=== PATIENT | female | born 1990 | race African-American/Black ===

== ENCOUNTER 2017-02-28 08:10 | Emergency (ER) | payer MEDICAID ==
[~2017-02-28] VITALS: Ht 162.6 cm; Wt 66.5 kg
[~2017-02-28 08:10] MED LIST: AMOX500T PO; BACT800T5 PO; HYDR-3533 PO; PENI250S PO
[2017-02-28 08:15] VITALS: BP 119/66; PULSE 71; RESP 18; TEMP 98.5; O2SAT 99
[2017-02-28] MEDS ORDERED: TYLE325T PO (08:54)
--- NOTE | 2017-02-28 08:56 | PD ---
HPI Chief Complaint: Headache Time Seen by Provider: 08:46 Travel History International Travel<30 days: No Contact w/Intl Traveler<30days: No Traveled to known affect area: No History of Present Illness HPI has a history of migraines but ran out of her medications...gastelum, generalized, , no visual changes, no vomiting...however does state that she has had more nausea (even without a headache) during the last 3 days. all:sudafed causes edema of tongue pmhx neg pshx: c sectionx3 lmp: december of this year PFSH Past Medical History Diminished Hearing: No Reproductive: Yes (PLACENTA PREVIA: 3RD CHILD, LABOR ALL 3 PREGNANCIES) Immunizations Current: Yes ?: LMP: 01/18/17 : 3 Para: 3 Past Surgical History Section: Yes (X1: 2008) Social History Alcohol Use: No Tobacco Use: No Substance Use: No Allergies-Medications (Allergen,Severity, Reaction): Coded Allergies: pseudoephedrine (Unverified Allergy, Severe, TONGUE SWELLS, 02/28/17) Uncoded Allergies: AQUA FRESH TOOTHPASTE (Allergy, Intermediate, TONGUE SWELLS, 12/21/15) . Reported Meds & Prescriptions Reported Meds & Active Scripts Active Reported Tylenol (Acetaminophen) 325 Mg Tab 650 Mg PO Q4H PRN Review of Systems Except as stated in HPI: all other systems reviewed are Neg HENT: Positive: Headaches Physical Exam Narrative GENERAL: SKIN: Warm and dry. HEAD: Atraumatic. Normocephalic. EYES: Pupils equal and round. No scleral icterus. No injection or drainage. ENT: No nasal bleeding or discharge. Mucous membranes pink and moist. NECK: Trachea midline. No JVD. CARDIOVASCULAR: Regular rate and rhythm. RESPIRATORY: No accessory muscle use. Clear to auscultation. Breath sounds equal bilaterally. GASTROINTESTINAL: Abdomen soft, non-tender, nondistended. MUSCULOSKELETAL: Extremities without clubbing, cyanosis, or edema. No obvious deformities. NEUROLOGICAL: Awake and alert. No obvious cranial nerve deficits. Motor grossly within normal limits. Five out of 5 muscle strength in the arms and legs. Normal speech. PSYCHIATRIC: Appropriate mood and affect; insight and judgment normal. Data Data Last Documented VS Vital Signs Date Time Temp Pulse Resp B/P (MAP) Pulse Ox O2 Delivery O2 Flow Rate FiO2 02/28/17 08:15 98.5 71 18 119/66 (83) 99 Orders Orders Ed Urine Pregnancytest Poc (02/28/17 08:20) Complete Blood Count With Diff (02/28/17 08:47) Comprehensive Metabolic Panel (02/28/17 08:47) Urinalysis - C+S If Indicated (02/28/17 08:47) Beta Hcg (Quant/Titer) (02/28/17 08:47) Sodium Chlor 0.9% 1000 Ml Inj (Ns 1000 M (02/28/17 09:00) Ondansetron Inj (Zofran Inj) (02/28/17 09:00) Urine Culture (02/28/17 08:45) Labs Laboratory Tests Test 02/28/17 08:45 02/28/17 09:05 Urine Collection Type CLEAN CATCH Urine Color YELLOW Urine Turbidity SLIGHTY CLOUDY Urine pH 6.0 Urine Specific [place] 1.026 Urine Protein TRACE mg/dL Urine Glucose (UA) NEG mg/dL Urine Ketones 80 OR GREATER mg/dL Urine Occult Blood MOD Urine Nitrite NEG Urine Bilirubin NEG Urine Leukocyte Esterase SMALL Urine RBC 0-3 /hpf Urine WBC 9-14 /hpf Urine Squamous Epithelial Cells 0-5 /hpf Urine Amorphous Sediment MOD Microscopic Urinalysis Comment CULTURE INDICATED White Blood Count 7.4 TH/MM3 Red Blood Count 4.09 MIL/MM3 Hemoglobin 13.6 GM/DL Hematocrit 39.4 % Mean Corpuscular Volume 96.2 FL Mean Corpuscular Hemoglobin 33.1 PG Mean Corpuscular Hemoglobin Concent 34.4 % Red Cell Distribution Width 12.2 % Platelet Count 223 TH/MM3 Mean Platelet Volume 7.4 FL Neutrophils (%) (Auto) 80.2 % Lymphocytes (%) (Auto) 14.5 % Monocytes (%) (Auto) 4.3 % Eosinophils (%) (Auto) 0.2 % Basophils (%) (Auto) 0.8 % Neutrophils # (Auto) 5.9 TH/MM3 Lymphocytes # (Auto) 1.1 TH/MM3 Monocytes # (Auto) 0.3 TH/MM3 Eosinophils # (Auto) 0.0 TH/MM3 Basophils # (Auto) 0.1 TH/MM3 CBC Comment DIFF FINAL Differential Comment Blood Urea Nitrogen 6 MG/DL Creatinine 0.76 MG/DL Random Glucose 71 MG/DL Total Protein 8.1 GM/DL Albumin 3.9 GM/DL Calcium Level 9.2 MG/DL Alkaline Phosphatase 102 U/L Aspartate Amino Transf (AST/SGOT) 19 U/L Alanine Aminotransferase (ALT/SGPT) 15 U/L Total Bilirubin 1.3 MG/DL Sodium Level 133 MEQ/L Potassium Level 3.9 MEQ/L Chloride Level 101 MEQ/L Carbon Dioxide Level 19.6 MEQ/L Anion Gap 12 MEQ/L Estimat Glomerular Filtration Rate 113 ML/MIN Human Chorionic Gonadotropin, Quant 18839 MIU/ML [facility] Medical Decision Making Medical Screen Exam Complete: Yes Emergency Medical Condition: Yes Medical Record Reviewed: Yes Differential Diagnosis migraine v hellp v pih v eclampsia v preeclampsia Narrative Course NO HYPERTENSION, NO E/O HELLP SYNDROME NOR ECLAMPSIA/PRE..PATIENT IS NONTOXIC AND 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 HER GASTELUM DOWN TO 3/10, WILL NOT PROVIDE ADDITIONAL PAIN MEDICATION AND ADVISE THAT SHE FOLLOW UP WITH OBGYN Diagnosis Primary Impression: Headache Qualified Codes: G44.209 - Tension-type headache, unspecified, not intractable Additional Impressions: , newly diagnosed UTI Patient Instructions: General Instructions, Urinary Tract Infection in Women ( ED) Scripts Nitrofurantoin Monohydrate Macrocrystals (Macrobid) 100 Mg Cap 100 MG PO BID for Infection, #14 CAP 0 Refills Prov: Kevin Preciado MD 02/28/17 Tramadol (Ultram) 50 Mg Tab 50 MG PO Q6H Y for PAIN, #6 TAB 0 Refills Prov: Kevin Preciado MD 02/28/17 Ondansetron Odt (Zofran Odt) 4 Mg Tab 4 MG SL Q6HR Y for Nausea/Vomiting, #30 TAB 0 Refills Prov: Kevin Preciado MD 02/28/17 Disposition: 01 DISCHARGE HOME Condition: Stable Kevin Preciado MD Feb 28, 2017 08:56
[2017-02-28] MEDS ORDERED: ONDANSETRON HCL 4 MG/2 ML VIAL IV PUSH ONE (09:00)
[2017-02-28] MEDS ORDERED: SODIUM CHLOR 0.9% 1000 ML INJ 1,000 ML IV ONE (09:00)
[2017-02-28 09:09] LABS: AUTOMATED NEUTROPHIL # 5.9 TH/MM3 (1.8-7.7); BASOPHIL # 0.1 TH/MM3 (0-0.2); BASOPHIL % 0.8 % (0.0-2.0); EOSINOPHIL % 0.2 % (0.0-4.0); HEMATOCRIT 39.4 % (35.0-46.0); HEMO FLAGS DIFF FINAL; LYMPH % 14.5 % (9.0-44.0); LYMPHOCYTE # 1.1 TH/MM3 (1.0-4.8); MEAN CELL VOLUME 96.2 FL (80.0-100.0); MEAN CORPUSCULAR HEMOGLOBIN 33.1 PG (27.0-34.0); MEAN CORPUSCULAR HGB CONC 34.4 % (32.0-36.0); MONO % 4.3 % (0.0-8.0); NEUT % 80.2 % (16.0-70.0); PLATELET COUNT 223 TH/MM3 (150-450); RED BLOOD COUNT 4.09 MIL/MM3 (4.00-5.30); RED CELL DISTRIBUTION WIDTH 12.2 % (11.6-17.2); WHITE BLOOD COUNT 7.4 TH/MM3 (4.0-11.0)
[2017-02-28 09:10] LABS: BLOOD, URINE MOD (NEG); GLUCOSE,URINE NEG (NEG); KETONE, URINE 80 OR GREATER mg/dL (NEG); NITRITE,URINE NEG (NEG)
[2017-02-28 09:17] LABS: METHOD OF COLLECTION CLEAN CATCH; URINE COLOR YELLOW (YELLW/STRAW)
[2017-02-28 09:19] LABS: COMMENT (UR) CULTURE INDICATED; COMMENT2 (UR) MUCOUS PRESENT; CULTURE IF INDICATED CULTURE INDICATED; RBC, URINE 0-3 /hpf (0-3); SQUAMOUS EPITHELIAL CELL URINE 0-5 /hpf (0-5)
[2017-02-28 10:03] LABS: ANION GAP 12 MEQ/L (5-15); BICARBONATE 19.6 MEQ/L (21.0-32.0); BLOOD UREA NITROGEN 6 MG/DL (7-18); CHLORIDE 101 MEQ/L (98-107); POTASSIUM 3.9 MEQ/L (3.5-5.1); SODIUM (NA) 133 MEQ/L (136-145)
[2017-02-28 10:06] LABS: ALT (GPT) 15 U/L (10-53); GLOMERULAR FILTRATION RATE 113 ML/MIN (>89)
[2017-02-28 10:07] LABS: TOTAL BILIRUBIN ADULT 1.3 MG/DL (0.2-1.0)
[2017-02-28 10:09] LABS: ALKALINE PHOSPHATASE 102 U/L (45-117)
[2017-02-28 10:14] LABS: AST (GOT) 19 U/L (15-37)
[2017-02-28 10:23] LABS: BETA HCG QUANT 47463 MIU/ML (0-5)
[2017-02-28] MEDS ORDERED: ULTR50TA5 PO (10:25)
[2017-02-28] MEDS ORDERED: ZOFR4TAB3 SL (10:25)
[2017-02-28] MEDS ORDERED: MACR100C2 PO (10:27)
[2017-02-28 10:52] VITALS: BP 122/67
== END 2017-02-28 10:58 | disposition home or self-care (01) ==
LOC: PHED 08:10
DX: G44.209 Tension-type headache, unspecified, not intractable (principal); N39.0 Urinary tract infection, site not specified
CPT/HCPCS: 80053; 81001; 84702; 84703; 85025; 87086; 96361; 96374; 99284; J2405; J7030

== ENCOUNTER → 2017-04-27 | Outpatient (CLI) | payer MEDICAID ==
[~2017-04-27] MED LIST changes: -AMOX500T PO; -BACT800T5 PO; -HYDR-3533 PO; +MACR100C2 PO; -PENI250S PO; +PREN1CAP7 PO
== END ==
LOC: HPND 13:38
PROVIDERS: ATTEND Obstetrics & Gynecology
DX: O09.212 Supervision of pregnancy with history of pre-term labor, second trimester (principal); O34.32 Maternal care for cervical incompetence, second trimester
CPT/HCPCS: 76805; 76817

== ENCOUNTER → 2017-05-02 | Day surgery (SDC) | payer MEDICAID ==
--- NOTE | 2017-05-01 10:37 | MH ---
cc: HANNAH BARRIOS MD DATE OF ADMISSION: 05/02/2017 REASON FOR ADMISSION The patient is a 27-year-old black female, 4, para 3. She is being admitted to [facility] for treatment of cervical incompetence. HISTORY OF PRESENT ILLNESS The patient is well-known to our practice. She has been seen throughout this . She is approximately 16 weeks gestation. The patient gives a history of having three previous pregnancies. All pregnancies were delivered premature. The patient also describes that during her last two pregnancies she encountered significant cervical dilatation without any prolonged labor pattern. She delivered the pregnancies at 26, 27 and 31 weeks. She was also given Raisa during her last . The patient has expressed a desire to undergo cervical cerclage. We discussed with the patient the fact that cerclage does not guarantee her any full-term deliveries and really that cervical cerclage works best with cervical incompetence. We also sent the patient for a consultation with maternal medicine but because of scheduling problems the patient could not be seen until much later on in the , and because of the importance of placing the cerclage early we have gone ahead at this time without a consultation with maternal medicine. Her last ultrasound scan examination revealed a cervical length just under 35 mm. PAST MEDICAL HISTORY Essentially noncontributory. ALLERGIES 1. PSEUDOEPHEDRINE. 2. AQUA FRESH TOOTHPASTE. MEDICATIONS She is on vitamins. SOCIAL HISTORY She describes herself as a non-smoker, non-drinker. REVIEW OF SYSTEMS Essentially noncontributory. PHYSICAL EXAMINATION GENERAL: The patient is seen well-developed, well-nourished, in no acute distress. VITAL SIGNS: Blood pressure is 112/60, pulse 70, respirations 12. HEENT: Negative. CHEST: Clear to auscultation. CARDIOVASCULAR: Regular rate. ABDOMEN: Fundal height approximately 16 weeks. PELVIC: Cervix is closed with no gross effacement. EXTREMITIES: No cyanosis, clubbing or edema. NEUROPSYCHIATRIC: Patient is oriented x3. No gross neurocranial and neuro cranial deficit, IMPRESSION Impression on admission is history of three deliveries with cervical incompetence. PLAN The plan is to proceed with a cervical cerclage. MD MICH Villalta/SUZIE /9:58 AM /10:21 AM
[~2017-05-02] VITALS: Ht 162.6 cm; Wt 69.8 kg
[~2017-05-02] MED LIST changes: +ACETAMINOPHEN 325 MG TAB ONE; +ACETAMINOPHEN 325 MG TAB PO PRN; +AMOX500T PO; +CHLORHEXIDINE GLUCONATE 2 % 1 PACK (2 CLOTHS) TOPICAL PRN; +DO NOT ADM ANY ANTICOAGULANT DRUGS PRN; +LACTATED RINGER'S 1000 ML IV PRN; -MACR100C2 PO; +METOPROLOL TARTRATE 25 MG TAB PO PRN; +POVIDONE IODINE 5% (ANTISEPSIS KIT) 4 APPLICATIONS EACH NARE PRN; +SODIUM CHLORID 0.9% 500 ML IV PRN; +ceFAZolin 2 GM PREMIX 50 ML IV SCH
[2017-05-02 13:09] VITALS: BP 119/73; PULSE 84; RESP 18; TEMP 98.6; O2SAT 99
--- NOTE | 2017-05-23 17:25 | MP ---
cc: ZULY JOE MD DATE OF SURGERY: 05/02/2017 PREOPERATIVE DIAGNOSIS: Cervical incompetence. POSTOPERATIVE DIAGNOSIS: Cervical incompetence. OPERATION: Cervical cerclage. SURGEON: Parker ANESTHESIA: The anesthesia was spinal. ESTIMATED BLOOD LOSS: Minimal. COMPLICATIONS: None. BUN PANNER: None. PROCEDURE The patient prepped in dorsal lithotomy position. Weighted speculum was placed in the posterior vaginal wall. The cervix was grasped and one Prolene stitch was then placed in the cervix in a circumferential manner and then tied at 12 o'clock position. Approximately one cm posterior to the first stitch placement. A second, 1-0 Prolene suture was placed in a circumferential manner and then tied at also the 12 o'clock position. Hemostasis was noted, the speculum was removed. The patient was returned to recovery in stable condition. MD MICH Villalta/quang /3:00 PM /4:40 PM
== END | disposition home or self-care (01) ==
LOC: HSDC 05:19
PROVIDERS: ATTEND Obstetrics & Gynecology
DX: O34.32 Maternal care for cervical incompetence, second trimester (principal); Z3A.16 16 weeks gestation of pregnancy
CPT/HCPCS: 00948; 59320; J0690; J7120

== ENCOUNTER → 2017-05-09 | Outpatient (CLI) | payer MEDICAID ==
[~2017-05-09] MED LIST changes: -ACETAMINOPHEN 325 MG TAB ONE; -ACETAMINOPHEN 325 MG TAB PO PRN; -CHLORHEXIDINE GLUCONATE 2 % 1 PACK (2 CLOTHS) TOPICAL PRN; -DO NOT ADM ANY ANTICOAGULANT DRUGS PRN; -LACTATED RINGER'S 1000 ML IV PRN; -METOPROLOL TARTRATE 25 MG TAB PO PRN; -POVIDONE IODINE 5% (ANTISEPSIS KIT) 4 APPLICATIONS EACH NARE PRN; -SODIUM CHLORID 0.9% 500 ML IV PRN; -ceFAZolin 2 GM PREMIX 50 ML IV SCH
== END ==
LOC: HPND 08:42
PROVIDERS: ATTEND Obstetrics & Gynecology
DX: O34.32 Maternal care for cervical incompetence, second trimester (principal)
CPT/HCPCS: 76815; 76817

== ENCOUNTER 2017-05-14 17:11 | Emergency (ER) | payer MEDICAID ==
[~2017-05-14] VITALS: Ht 162.6 cm; Wt 70.7 kg
[~2017-05-14 17:11] MED LIST changes: -AMOX500T PO
[2017-05-14 17:21] VITALS: BP 120/69; PULSE 86; RESP 16; TEMP 97.3; O2SAT 98
[2017-05-14 18:02] LABS: BILIRUBIN, URINE NEG (NEG); BLOOD, URINE LARGE (NEG); GLUCOSE,URINE NEG (NEG); KETONE, URINE NEG (NEG); NITRITE,URINE NEG (NEG); URINE LEUKOCYTE ESTERASE SMALL (NEG)
[2017-05-14 18:39] LABS: URINE COLOR YELLOW (YELLW/STRAW)
[2017-05-14 18:40] LABS: AMORPHOUS SEDIMENT, URINE FEW; BACTERIA, URINE MOD /hpf; WHITE BLOOD CELL CLUMPS FEW
--- NOTE | 2017-05-14 18:51 | PD ---
HPI Chief Complaint: Related Problem Time Seen by Provider: 18:42 Travel History International Travel<30 days: No Contact w/Intl Traveler<30days: No Traveled to known affect area: No History of Present Illness HPI 27-year-old female patient with history of cervical incompetence, 3 previous pregnancies which were , currently 17 weeks' hand had a cerclage placed on Monday by Dr. Lomax, presents to the ER today with 2 days history of lower abdominal discomfort intermittently, states it is occurring about 2-3 times in our. She has noticed increased mucousy discharge. She denies any blood. She denies any fevers, vomiting, or other symptoms. Modifying Factors: None Associated Signs & Symptoms: Lower abdominal pains, 17 weeks, increased discharge, has cerclage placed on Monday Risk Factors: Cervical incompetence PFSH Past Medical History Cancer: No Cardiovascular Problems: No Diabetes: No Diminished Hearing: No Endocrine: No Genitourinary: No Hepatitis: No Hiatal Hernia: No Immune Disorder: No Musculoskeletal: No Neurologic: No Psychiatric: No Reproductive: Yes (PLACENTA PREVIA: 3RD CHILD, LABOR ALL 3 PREGNANCIES) Respiratory: No Immunizations Current: Yes Migraines: Yes Thyroid Disease: No ?: : 3 Para: 3 Past Surgical History AICD: No Section: Yes (X1: 2009) Gynecologic Surgery: Yes (CSECTION X 1) Joint Replacement: No Pacemaker: No Social History Alcohol Use: No Tobacco Use: No Substance Use: No Allergies-Medications (Allergen,Severity, Reaction): Coded Allergies: pseudoephedrine (Verified Allergy, Severe, TONGUE SWELLS, 05/14/17) Uncoded Allergies: AQUA FRESH TOOTHPASTE (Allergy, Intermediate, TONGUE SWELLS, 12/21/15) . Reported Meds & Prescriptions Reported Meds & Active Scripts Active Citranatal [place] ( W/O Vit A W/ Fe Fumar) 27-1-260 Mg Cap 1 Cap PO DAILY Review of Systems Except as stated in HPI: all other systems reviewed are Neg Physical Exam Narrative GENERAL: Well-developed young after Martiniquais female patient currently in mild distress. Awake and oriented 3. SKIN: Focused skin assessment warm/dry. HEAD: Atraumatic. Normocephalic. EYES: Pupils equal and round. No scleral icterus. No injection or drainage. ENT: No nasal bleeding or discharge. Mucous membranes pink and moist. NECK: Trachea midline. No JVD. CARDIOVASCULAR: Regular rate and rhythm. No murmur appreciated. RESPIRATORY: No accessory muscle use. Clear to auscultation. Breath sounds equal bilaterally. GASTROINTESTINAL: Abdomen gravid, mild suprapubic and lower abdominal tenderness without guarding or rebound, nondistended. Hepatic and splenic margins not palpable. MUSCULOSKELETAL: No obvious deformities. No clubbing. No cyanosis. No edema. NEUROLOGICAL: Awake and alert. No obvious cranial nerve deficits. Motor grossly within normal limits. Normal speech. PSYCHIATRIC: Appropriate mood and affect; insight and judgment normal. Data Data Last Documented VS Vital Signs Date Time Temp Pulse Resp B/P (MAP) Pulse Ox O2 Delivery O2 Flow Rate FiO2 05/14/17 17:21 97.3 86 16 120/69 (86) 98 Orders Orders Urinalysis - C+S If Indicated (05/14/17 17:23) Urine Culture (05/14/17 17:21) Ed Discharge Order (05/14/17 18:49) Labs Laboratory Tests Test 05/14/17 17:21 Urine Collection Type CLEAN CATCH Urine Color YELLOW Urine Turbidity SLIGHT Urine pH 6.0 Urine Specific [place] 1.032 Urine Protein NEG mg/dL Urine Glucose (UA) NEG mg/dL Urine Ketones NEG mg/dL Urine Occult Blood LARGE Urine Nitrite NEG Urine Bilirubin NEG Urine Leukocyte Esterase SMALL Urine RBC 10-14 /hpf Urine WBC 9-14 /hpf Urine WBC Clumps FEW Urine Squamous Epithelial Cells 6-8 /hpf Urine Amorphous Sediment FEW Urine Bacteria MOD /hpf Microscopic Urinalysis Comment CULTURE INDICATED Urine Collection Time 1721 MDM Medical Decision Making Medical Screen Exam Complete: Yes Emergency Medical Condition: Yes Medical Record Reviewed: Yes Differential Diagnosis Premature rupture of membranes versus Pavo Leong contractions versus UTI versus spontaneous AB Narrative Course UA shows UTI. heart tones are 120. Case was discussed with Dr. Valdes who is covering for OB ER at [facility], and he states that patient can be sent there to be evaluated further for this issue. Patient is a high risk concerned cerclage and history of premature labor. I have talked to the patient regarding this risk and have encouraged her to go straight to [facility] to be evaluated in the OB ER. The rest of abdomen is fairly benign. Diagnosis Primary Impression: UTI (urinary tract infection) Additional Impression: Abdominal pain during in second trimester Med/Other Pt SpecificInfo: Prescription(s) given Scripts Amoxicillin (Amoxicillin) 500 Mg Tab 500 MG PO TID for Infection for 7 Days, TAB 0 Refills Prov: Amanda Mora MD 05/14/17 Disposition: 01 DISCHARGE HOME (goes straight to the OB ER at [facility], see Dr. Valdes) Condition: Stable Amanda Mora MD May 14, 2017 18:51
[2017-05-14] MEDS ORDERED: AMOX500T PO (19:01)
== END 2017-05-14 19:05 | disposition home or self-care (01) ==
LOC: PHED 17:11
DX: O23.42 Unspecified infection of urinary tract in pregnancy, second trimester (principal); B96.89 Other specified bacterial agents as the cause of diseases classified elsewhere; Z3A.17 17 weeks gestation of pregnancy
CPT/HCPCS: 81001; 87086; 99283

== ENCOUNTER 2017-05-14 19:34 | Emergency (ER) | payer MEDICAID ==
[~2017-05-14 19:34] MED LIST changes: +AMOX500T PO
--- NOTE | 2017-05-14 20:47 | PD ---
HPI Chief Complaint lower abd pain ,after cx cerclage 1 wk ago Date Seen: May 14, 2017 Time Seen: 20:30 Travel History International Travel<30 Days: No Contact w/Intl Traveler<30Days: No Known Affected Area: No History of Present Illness HPI 17 wk IUP all , had a cx cerclage placed [address] Car of [facility] clinic. now with 1 day of lower abd pain , no bleeding or LOF., sent from [facility] , FHT -- 140 , she has had a problem with persistent UTI and is just finishing a course of keflex po and is starting ampicillin tomorrow ., UA done in PO[ + for UTI] and sent for culture Weeks Gestation: 17 Para: 3 : 4 Last Menstrual Period: May 14, 2017 History Obstetric History Obstetric History had a C section with first baby at 27 wks then 2 VBACs at 29 and 31 wks , she requested a cerclage with this preg currently being treated for UTI Past Surgical History Narrative Surgical C section , cx cerclage Social History Alcohol Use: No Tobacco Use: No Substance Abuse: No Allergies-Medications (Allergen,Severity, Reaction): Coded Allergies: pseudoephedrine (Verified Allergy, Severe, TONGUE SWELLS, 05/14/17) Uncoded Allergies: AQUA FRESH TOOTHPASTE (Allergy, Intermediate, TONGUE SWELLS, 12/21/15) . Home Meds Active Scripts Amoxicillin (Amoxicillin) 500 Mg Tab, 500 MG PO TID for Infection for 7 Days, TAB 0 Refills Prov:Amanda Mora MD 05/14/17 W/O Vit A W/ Fe Fumar (Citranatal [place]) 27-1-260 Mg Cap, 1 CAP PO DAILY for Nutritional Supplement, #30 CAP 3 Refills Prov:Prem Parsons MD 04/24/17 Review of Systems General / Constitutional: No: Fever, Weight Gain, Chills, Other Eyes: No: Diploplia, Blurred Vision, Visual changes, Pain, Photophobia HENT: No: Headaches, Vertigo, Lightheadedness Cardiovascular: No: Irregular Rhythm, Chest Pain or Discomfort, Palpitations, Tachycardia, Syncope, Varicosities, Edema, Cyanosis Respiratory: No: Cough, Short of Breath, Other Gastrointestinal: Abdominal Pain, No: Nausea, Vomiting, Diarrhea Genitourinary: No: Decreased Urinary Output, Oliguria Musculoskeletal: No: Limited ROM, Weakness, Cramping, Edema, Pain Skin: No Rash, No Itching, No Dryness, No Lumps, No Change in Pigmentation, No Change in Nails, No Alopecia, No Lesions Neurologic: No: Weakness, Dizziness, Syncope, Focal Abnormalities, Coordination Problem, Headache, Slurred Speech, Seizures Psychiatric: No: Depression, Suicidal Ideations, Homicidal Ideation Endocrine: No: Heat Intolerance, Cold Intolerance, Polydipsia, Polyuria, Other Physical Exam Narrative GENERAL: Well-nourished, well-developed patient. SKIN: Warm and dry. HEAD: Normocephalic and atraumatic. EYES: No scleral icterus. No injection or drainage. ENT: No nasal drainage noted. Mucous membranes pink. Airway patent. NECK: Supple, trachea midline. No JVD. CARDIOVASCULAR: Regular rate and rhythm without murmurs, gallops, or rubs. RESPIRATORY: Breath sounds equal bilaterally. No accessory muscle use. BREASTS: Bilateral exam showed no masses , no retractions, no nipple discharge. ABDOMEN/GI: Abdomen soft, non-tender, bowel sounds present, no rebound, no guarding Gravid to [-17] weeks size Fundal Height: [below umbilicus-] GENITOURINARY: External Genitalia: intact and normal in appearance speculum exam done -- no pus or drainage seen small amount of noninfected white discharge noted [cerclage of prolene suture seen and is intact -] Cervix: [closed -] Dilatation: [closed-] Effacement: [thick] Station: [-3] ] Membranes: [intact amnisure neg] FHT's:145 -] EXTREMITIES: No cyanosis or edema. BACK: Nontender without obvious deformity. No CVA tenderness. NEUROLOGICAL: Awake and alert. Motor and sensory grossly within normal limits. Five out of 5 muscle strength in all muscle groups. Normal speech. Data Data Labs amnisure neg UA positive for UTI on urine from PO ER MDM Interpretation(s) 17 wk IUP with LAP today had a cx cerclage 1 wk ago , no bleeding or LOF amnisure neg spec exam negative , UA + [ on po ATB] Plan cont ATB po await cult results and adjust ATB accordingly ., bedrest ., po fluids , heating pad or hot bath Diagnosis Diagnosis: Primary Impression: UTI (urinary tract infection) in in second trimester Additional Impressions: History of delivery, currently in second trimester 17 weeks gestation of Mock cerclage present in second trimester Disposition: 01 DISCHARGE HOME Condition: Stable Arnold Valdes II, MD May 14, 2017 20:47
== END 2017-05-14 20:45 | disposition home or self-care (01) ==
LOC: HOBED 19:34
DX: O23.42 Unspecified infection of urinary tract in pregnancy, second trimester (principal); Z3A.17 17 weeks gestation of pregnancy
CPT/HCPCS: 84112; 99283

== ENCOUNTER → 2017-05-19 | Outpatient (CLI) | payer MEDICAID | LOC: HPND 08:46 | PROVIDERS: ATTEND Obstetrics & Gynecology | DX: O34.32 Maternal care for cervical incompetence, second trimester (principal) | CPT/HCPCS: 76815; 76817 ==

== ENCOUNTER → 2017-05-31 | Outpatient (CLI) | payer MEDICAID | LOC: HPND 12:44 | PROVIDERS: ATTEND Obstetrics & Gynecology | DX: O26.872 Cervical shortening, second trimester (principal); O09.212 Supervision of pregnancy with history of pre-term labor, second trimester | CPT/HCPCS: 76816; 76817 ==

== ENCOUNTER → 2017-06-14 | Outpatient (CLI) | payer MEDICAID ==
[~2017-06-14] MED LIST changes: -AMOX500T PO; +PREN1CAP PO; -PREN1CAP7 PO
== END ==
LOC: HPND 08:18
PROVIDERS: ATTEND Obstetrics & Gynecology
DX: O09.212 Supervision of pregnancy with history of pre-term labor, second trimester (principal); O34.32 Maternal care for cervical incompetence, second trimester
CPT/HCPCS: 76815; 76817

== ENCOUNTER → 2017-07-03 | Outpatient (CLI) | payer MEDICAID ==
[~2017-07-03] MED LIST changes: +SULF1TAB23 PO
== END ==
LOC: HPND 08:18
PROVIDERS: ATTEND Obstetrics & Gynecology
DX: O09.212 Supervision of pregnancy with history of pre-term labor, second trimester (principal); O34.32 Maternal care for cervical incompetence, second trimester
CPT/HCPCS: 76816; 76817

== ENCOUNTER → 2017-07-07 | Outpatient (CLI) | payer MEDICAID ==
[~2017-07-07] MED LIST changes: +BETAMETHASONE SOD PHOS/ACETATE SUSP 30 MG/5 ML VIAL IM SCH
== END ==
LOC: HOBG 14:50
PROVIDERS: ATTEND Obstetrics & Gynecology
DX: O09.212 Supervision of pregnancy with history of pre-term labor, second trimester (principal)
CPT/HCPCS: 96372; J0702

== ENCOUNTER → 2017-07-08 | Outpatient (CLI) | payer MEDICAID ==
[~2017-07-08] MED LIST changes: +BETAMETHASONE SOD PHOS/ACETATE SUSP 30 MG/5 ML VIAL IM ONE; -BETAMETHASONE SOD PHOS/ACETATE SUSP 30 MG/5 ML VIAL IM SCH
== END ==
LOC: HOBG 14:55
PROVIDERS: ATTEND Obstetrics & Gynecology
DX: O09.212 Supervision of pregnancy with history of pre-term labor, second trimester (principal)
CPT/HCPCS: 96372; J0702

== ENCOUNTER 2017-07-16 16:53 | Inpatient (IN) | payer MEDICAID ==
[~2017-07-16] VITALS: Ht 160 cm; Wt 78.0 kg
[~2017-07-16 16:53] MED LIST changes: -BETAMETHASONE SOD PHOS/ACETATE SUSP 30 MG/5 ML VIAL IM ONE
[2017-07-16 17:40] VITALS: PULSE 101
[2017-07-16 17:45] VITALS: PULSE 98
[2017-07-16 17:50] VITALS: PULSE 102
[2017-07-16 17:55] VITALS: PULSE 105
--- NOTE | 2017-07-16 18:03 | PD ---
HPI Chief Complaint pressure Date Seen: Jul 16, 2017 Time Seen: 17:52 Travel History International Travel<30 Days: No Contact w/Intl Traveler<30Days: No Known Affected Area: No History of Present Illness HPI 27y/o @ 26.4wks. She has PNC with [facility]. She has a h/o PTD x3 as follows: 1. 27wk c/s for breech with CI 2. 29wk with CI 3. 31wk with CI on 17-OHP This , she is on 17-OHP and had a ppx cerclage placed at 15wks. She has been followed by MFM and most recently on 07/05 her CL was 2.2cm. She has been on bed rest. She is BMZ complete as of 07/07 and 07/08. Today, pt reported an increase in vaginal pressure. She also states she "feels air" like she is dilating. She denies ctx, LOF, or VB. +FM. Weeks Gestation: 26 Para: 3 : 4 History Past Medical History Medical History: Denies Significant Hx Obstetric History Obstetric History per HPI Past Surgical History Narrative Surgical CS x1 cerclage x1 Family History Family History: Negative Social History Alcohol Use: No Tobacco Use: No Substance Abuse: No Allergies-Medications (Allergen,Severity, Reaction): Coded Allergies: pseudoephedrine (Verified Allergy, Severe, TONGUE SWELLS, 06/21/17) Uncoded Allergies: AQUA FRESH TOOTHPASTE (Allergy, Intermediate, TONGUE SWELLS, 12/21/15) . Home Meds Active Scripts Sulfamethoxazole-Trimethoprim (Sulfamethoxazole-Trimethoprim) 800-160 Mg Tab, 1 TAB PO BID for Infection for 7 Days, #14 TAB 0 Refills Prov:Lara Solis CNM AUTOMOTIVE SERVICE DIRECTOR 06/21/17 Vit W/ Fe Polysacch C (Vitafol Ultra 29-0.6-0.4-200 mg) 29 Mg Iron-1 Mg -200 Mg Cap, 1 TAB PO DAILY, #30 BOTTLE 11 Refills Prov:Lara Solis CNM AUTOMOTIVE SERVICE DIRECTOR 06/21/17 Review of Systems Except as stated in HPI: all other systems reviewed are Neg Physical Exam Narrative General: well developed, well nourished, no acute distress HEENT: normocephalic atraumatic, extraocular movements intact, neck supple Abdomen: soft, gravid, nontender, nondistended Uterus: fundus above umbilicus Extremities: full range of motion Skin: normal coloration, no rashes, no suspicious skin lesions noted Neurologic: cranial nerves 2-12 grossly intact, normal muscle tone, normal gait Psychiatric: normal mood and affect, appropriate FHTs: 140s, age appropriate [place]: quiet Cvx: cerclage in place without tear through, Data Data Vital Signs Reviewed: Yes Orders Orders Vital Signs (Adult) .ON ADMISSION (07/16/17 17:35) ^ Labor Status (07/16/17 17:35) Urinalysis - C+S If Indicated (07/16/17 17:35) ^ Non Stress Test (07/16/17 17:35) Us Ob Repeat/Fu(Growth) (07/16/17 ) MDM Plan 27y/o @ 26.4wks with CI, cerclage in place, h/o PTD x3, h/o CSx1, h/o x2 with pressure -- FHTs age appropriate -- cvx 2cm dilated with cerclage on no tension -- s/p BMZ 07/07 and 07/08 Dispo: US ordered for growth and CL Diagnosis Diagnosis: Primary Impression: 26 weeks gestation of Additional Impressions: Cervical insufficiency during in second trimester, antepartum Cervical cerclage suture present in second trimester History of delivery, currently in second trimester History of delivery Hx successful (vaginal after ), currently Louis Hermosillo MD Jul 16, 2017 18:03
[2017-07-16] MEDS ORDERED: SODIUM CHLORIDE 0.9% FLUSH 10 ML FLUSH IV FLUSH PRN (19:00)
[2017-07-16] MEDS ORDERED: ZOLPIDEM TARTRATE 5 MG TAB PO PRN (19:00)
[2017-07-16] MEDS ORDERED: ONDANSETRON HCL 4 MG/2 ML VIAL IV PUSH PRN (19:00)
[2017-07-16] MEDS ORDERED: ONDANSETRON ODT 4 MG TAB PO PRN (19:00)
--- NOTE | 2017-07-16 19:07 | HHI.PR ---
AIRLINE STEWARDESS Note Note HPI Chief Complaint pressure Date Seen: Jul 16, 2017 Time Seen: 17:52 Travel History International Travel<30 Days: No Contact w/Intl Traveler<30Days: No Known Affected Area: No History of Present Illness HPI 27y/o @ 26.4wks. She has PNC with [facility]. She has a h/o PTD x3 as follows: 1. 27wk c/s for breech with CI 2. 29wk with CI 3. 31wk with CI on 17-OHP This , she is on 17-OHP and had a ppx cerclage placed at 15wks. She has been followed by MFM and most recently on 07/05 her CL was 2.2cm. She has been on bed rest. She is BMZ complete as of 07/07 and 07/08. Today, pt reported an increase in vaginal pressure. She also states she "feels air" like she is dilating. She denies ctx, LOF, or VB. +FM. Weeks Gestation: 26 Para: 3 : 4 History Past Medical History Medical History: Denies Significant Hx Obstetric History Obstetric History per HPI Past Surgical History Narrative Surgical CS x1 cerclage x1 Family History Family History: Negative Social History Alcohol Use: No Tobacco Use: No Substance Abuse: No Allergies-Medications (Allergen,Severity, Reaction): Coded Allergies: pseudoephedrine (Verified Allergy, Severe, TONGUE SWELLS, 06/21/17) Uncoded Allergies: AQUA FRESH TOOTHPASTE (Allergy, Intermediate, TONGUE SWELLS, 12/21/15) . Home Meds Active Scripts Sulfamethoxazole-Trimethoprim (Sulfamethoxazole-Trimethoprim) 800-160 Mg Tab, 1 TAB PO BID for Infection for 7 Days, #14 TAB 0 Refills Prov:Lara Solis CNM TOP DYEING MACHINE LOADER 06/21/17 Vit W/ Fe Polysacch C (Vitafol Ultra 29-0.6-0.4-200 mg) 29 Mg Iron-1 Mg -200 Mg Cap, 1 TAB PO DAILY, #30 BOTTLE 11 Refills Prov:Lara Solis CNM TOP DYEING MACHINE LOADER 06/21/17 Review of Systems Except as stated in HPI: all other systems reviewed are Neg Physical Exam Narrative General: well developed, well nourished, no acute distress HEENT: normocephalic atraumatic, extraocular movements intact, neck supple Abdomen: soft, gravid, nontender, nondistended Uterus: fundus above umbilicus Extremities: full range of motion Skin: normal coloration, no rashes, no suspicious skin lesions noted Neurologic: cranial nerves 2-12 grossly intact, normal muscle tone, normal gait Psychiatric: normal mood and affect, appropriate FHTs: 140s, age appropriate [place]: quiet Cvx: cerclage in place without tear through, Data Data Vital Signs Reviewed: Yes Orders Orders Vital Signs (Adult) .ON ADMISSION (07/16/17 17:35) ^ Labor Status (07/16/17 17:35) Urinalysis - C+S If Indicated (07/16/17 17:35) ^ Non Stress Test (07/16/17 17:35) Us Ob Repeat/Fu(Growth) (07/16/17 ) MDM Plan 27y/o @ 26.4wks with CI, cerclage in place, h/o PTD x3, h/o CSx1, h/o x2 with pressure -- FHTs age appropriate -- cvx 2cm dilated with cerclage on no tension -- s/p BMZ 07/07 and 07/08 Dispo: US ordered for growth and CL Diagnosis Diagnosis: Primary Impression: 26 weeks gestation of Additional Impressions: Cervical insufficiency during in second trimester, antepartum Cervical cerclage suture present in second trimester History of delivery, currently in second trimester History of delivery Hx successful (vaginal after ), currently Louis Hermosillo MD Jul 16, 2017 18:03 Addendum: Louis Hermosillo MD on 07/16/17 @ 18:57 US performed and EFW 941g. CL 1.44cm at rest and CL 1.13cm with valsalva. Discussed case with pt and recommend inpt monitoring. NICU is comfortable with pt staying at [facility]. Will defer magnesium for neuroprotection at this time given lack of imminent delivery signs. Bedrest with BR privileges, SCDs. PV progesterone (not on formulary but Rx given to family member and pt to take qHS. Discuss with MFM on Monday if continue 17-OHP but most evidence suggests it is not of additional benefit once PV progesterone for shorted cervix is initiated. Repeat CL on Monday. BID strips. Louis Hermosillo MD Jul 16, 2017 19:07
[2017-07-16] MEDS: ACETAMINOPHEN 325 MG TAB PO PRN (20:15)
[2017-07-16 20:57] LABS: BASOPHIL % 0.2 % (0.0-2.0); EOSINOPHIL # 0.8 TH/MM3 (0-0.4); EOSINOPHIL % 7.3 % (0.0-4.0); HEMATOCRIT 30.6 % (35.0-46.0); HEMOGLOBIN 10.4 GM/DL (11.6-15.3); LYMPH % 25.3 % (9.0-44.0); LYMPHOCYTE # 2.6 TH/MM3 (1.0-4.8); MEAN CORPUSCULAR HEMOGLOBIN 33.1 PG (27.0-34.0); MEAN CORPUSCULAR HGB CONC 34.1 % (32.0-36.0); MEAN PLATELET VOLUME 6.7 FL (7.0-11.0); MONO % 8.7 % (0.0-8.0); MONOCYTE # 0.9 TH/MM3 (0-0.9); NEUT % 58.5 % (16.0-70.0); PLATELET COUNT 239 TH/MM3 (150-450); RED BLOOD COUNT 3.15 MIL/MM3 (4.00-5.30); RED CELL DISTRIBUTION WIDTH 13.7 % (11.6-17.2); WHITE BLOOD COUNT 10.3 TH/MM3 (4.0-11.0)
[2017-07-16 20:57] LABS: BACTERIA, URINE RARE /hpf; BILIRUBIN, URINE NEG (NEG); BLOOD, URINE SMALL (NEG); GLUCOSE,URINE NEG (NEG); KETONE, URINE NEG (NEG); MUCUS URINE FEW /lpf (OCC); NITRITE,URINE NEG (NEG); SQUAMOUS EPITHELIAL CELL URINE 1 /hpf (0-5); URINE COLOR YELLOW (YELLW/STRAW); URINE LEUKOCYTE ESTERASE NEG (NEG)
[2017-07-16] MEDS: ALUMINUM/MAGNESIUM/SIMETH 30 ML CUP PO PRN (20:58)
[2017-07-16] MEDS: SODIUM CHLORIDE 0.9% FLUSH 10 ML FLUSH IV FLUSH SCH (21:00)
[2017-07-16 23:12] VITALS: BP 112/66; PULSE 94; RESP 16; TEMP 98
[2017-07-17] VITALS (18 sets, daily range): BP systolic 110–127; BP diastolic 68–80; PULSE 84–101; RESP 17–18; TEMP 98.1–98.2
[2017-07-17] MEDS: ACETAMINOPHEN 325 MG TAB PO PRN ×2 (07:26→13:27)
[2017-07-17] MEDS: MULTIVIT/MIN/PREN/FOL AC/IRON PRENATAL TAB PO SCH (08:09)
[2017-07-17] MEDS: SODIUM CHLORIDE 0.9% FLUSH 10 ML FLUSH IV FLUSH SCH ×2 (08:09→20:31)
--- NOTE | 2017-07-17 09:29 | PD.OB.ANTE ---
Subjective Interval History Patient seen and examined this morning OB team. No acute events overnight per nursing staff. Patient's only complaint is a headache that has not responded to Tylenol. She denies any visual changes, swelling, LUQ pain, or other neurologic symptoms. Her BP has been WNL since admission and has no history of pre- eclampsia. Otherwise she has no complaints and denies any fevers, chills, SOB, chest pain, NVD, ABD pain, and calf tenderness. Antepartum ROS: Reports: movement normal, Denies: New complaints, Loss of fluid, Vaginal bleeding, Contractions Objective Vital Signs Vital Signs Date Time Temp Pulse Resp B/P (MAP) Pulse Ox O2 Delivery O2 Flow Rate FiO2 07/17/17 07:17 96 110/71 (84) 07/16/17 23:12 94 112/66 (81) 07/16/17 23:12 98.0 16 07/16/17 17:55 105 07/16/17 17:50 102 07/16/17 17:45 98 07/16/17 17:40 101 Lab & Micro Results Test 07/16/17 17:10 07/16/17 19:25 Urine Color YELLOW Urine Turbidity CLEAR Urine pH 6.0 Urine Specific [place] 1.028 Urine Protein TRACE mg/dL Urine Glucose (UA) NEG mg/dL Urine Ketones NEG mg/dL Urine Occult Blood SMALL Urine Nitrite NEG Urine Bilirubin NEG Urine Urobilinogen LESS THAN 2.0 MG/DL Urine Leukocyte Esterase NEG Urine RBC 9 /hpf Urine WBC 3 /hpf Urine Squamous Epithelial Cells 1 /hpf Urine Bacteria RARE /hpf Urine Mucus FEW /lpf Microscopic Urinalysis Comment CULT NOT INDICATED White Blood Count 10.3 TH/MM3 Red Blood Count 3.15 MIL/MM3 Hemoglobin 10.4 GM/DL Hematocrit 30.6 % Mean Corpuscular Volume 97.0 FL Mean Corpuscular Hemoglobin 33.1 PG Mean Corpuscular Hemoglobin Concent 34.1 % Red Cell Distribution Width 13.7 % Platelet Count 239 TH/MM3 Mean Platelet Volume 6.7 FL Neutrophils (%) (Auto) 58.5 % Lymphocytes (%) (Auto) 25.3 % Monocytes (%) (Auto) 8.7 % Eosinophils (%) (Auto) 7.3 % Basophils (%) (Auto) 0.2 % Neutrophils # (Auto) 6.0 TH/MM3 Lymphocytes # (Auto) 2.6 TH/MM3 Monocytes # (Auto) 0.9 TH/MM3 Eosinophils # (Auto) 0.8 TH/MM3 Basophils # (Auto) 0.0 TH/MM3 CBC Comment DIFF FINAL Differential Comment Date/Time Source Procedure Growth Status 07/17/17 07:23 Genital Genital Region Group B Streptococcus Screen Pending Received Physical Exam GENERAL: Well-nourished, well-developed patient. CARDIOVASCULAR: Regular rate and rhythm without murmurs, gallops, or rubs. RESPIRATORY: Breath sounds equal bilaterally. No accessory muscle use. ABDOMEN/GI: Abdomen soft, non-tender. Fundus: Consistence with 26 weeks gestation FHT's: Category: 1 Baseline: 140s Reactive: Positive Variability: Moderate Decels: Negative EXTREMITIES: No cyanosis or edema, non-tender, without signs of DVT. Assessment and Plan Problem List: (1) 26 weeks gestation of ICD Codes: Z3A.26 - 26 weeks gestation of Status: Acute (2) Cervical insufficiency during in second trimester, antepartum ICD Codes: O34.32 - Maternal care for cervical incompetence, second trimester Status: Acute Assessment and Plan Ms. Gomez is a 27-year-old at 26/5 weeks gestation admitted for abdominal pressure with cerclage in place. 1. 26 weeks gestation of -Continue routine OB care -Encourage oral hydration -Encourage vitamin -[facility] category 1, reassuring without contractions -Bedrest with BR privileges, SCDs. 2. Cervical insufficiency -Cerclage in place -No loss of fluid, vaginal bleeding, or vaginal discharge -US performed and EFW 941g. -CL 1.44cm at rest and CL 1.13cm with valsalva. -Patient to continue to follow with MFM -NICU is comfortable with pt staying at [facility]. -Defer magnesium for neuroprotection at this time given lack of imminent delivery signs. -PV progesterone (not on formulary but Rx given to family member and pt to take qHS. Discuss with MFM on Monday if continue 17-OHP, but most evidence suggests it is not of additional benefit once PV progesterone for shorted cervix is initiated.) -Repeat CL on Monday. DW: Antonio Boles MD R2 Jul 17, 2017 09:29
[2017-07-17] MEDS ORDERED: ACETAMIN 325 MG/BUTALBITAL 50 MG/CAFFEINE 40 MG TAB PO ONE (15:00)
[2017-07-17] MEDS: ACETAMINOPHEN/CODEINE 300 MG/30 MG TAB PO PRN (20:32)
[2017-07-18] VITALS (12 sets, daily range): BP systolic 107–121; BP diastolic 64–75; PULSE 76–97; RESP 16–18; TEMP 97.8–98.8
[2017-07-18] MEDS: ACETAMINOPHEN/CODEINE 300 MG/30 MG TAB PO PRN ×4 (06:20→23:14)
--- NOTE | 2017-07-18 08:46 | PD.OB.ANTE ---
Subjective Diagnosis: (1) 26 weeks gestation of (2) Cervical insufficiency during in second trimester, antepartum Interval History Patient seen and examined this morning by OB team. No acute events overnight per report. VS remain stable and WNL. Patient's only complaint today is continued headache despite Tylenol #3 and Fioricet medications yesterday. Her pain has improved from a 8 to a 6 today. Otherwise she has no complaints and denies any fevers, chills, SOB, chest pain, NVD, ABD pain, or calf tenderness. Antepartum ROS: Reports: movement normal, Denies: New complaints, Loss of fluid, Vaginal bleeding, Contractions Objective Vital Signs Vital Signs Date Time Temp Pulse Resp B/P (MAP) Pulse Ox O2 Delivery O2 Flow Rate FiO2 07/18/17 07:41 18 07/18/17 07:38 86 107/66 (80) 07/18/17 07:38 98.0 07/18/17 06:08 84 115/64 (81) 07/18/17 06:00 97.8 07/18/17 06:00 18 07/18/17 00:00 18 07/17/17 22:00 18 07/17/17 19:53 98.1 18 07/17/17 19:50 92 127/79 (95) 07/17/17 18:00 98.1 07/17/17 16:00 18 07/17/17 15:54 101 115/68 (84) 07/17/17 13:00 17 07/17/17 13:00 98.2 07/17/17 11:07 93 119/80 (93) 07/17/17 11:00 18 07/17/17 09:45 91 07/17/17 09:40 86 07/17/17 09:35 95 07/17/17 09:30 97 07/17/17 09:25 88 07/17/17 09:20 84 07/17/17 09:15 93 Lab & Micro Results Date/Time Source Procedure Growth Status 07/17/17 07:23 Genital Genital Region Group B Streptococcus Screen Pending Received Physical Exam GENERAL: Well-nourished, well-developed patient. CARDIOVASCULAR: Regular rate and rhythm without murmurs, gallops, or rubs. RESPIRATORY: Breath sounds equal bilaterally. No accessory muscle use. ABDOMEN/GI: Abdomen soft, non-tender. Fundus: Consistence with 26 weeks gestation FHT's: Category: 1 Baseline: 140s Reactive: Positive Variability: Moderate Decels: Negative EXTREMITIES: No cyanosis or edema, non-tender, without signs of DVT. Assessment and Plan Problem List: (1) 26 weeks gestation of ICD Codes: Z3A.26 - 26 weeks gestation of Status: Acute (2) Cervical insufficiency during in second trimester, antepartum ICD Codes: O34.32 - Maternal care for cervical incompetence, second trimester Status: Acute Assessment and Plan Ms. Gomez is a 27-year-old at 26/6 weeks gestation admitted for abdominal pressure with cerclage in place. 1. 26 weeks gestation of -Continue routine OB care -Encourage oral hydration -Encourage vitamin -[facility] category 1, reassuring without contractions -Bedrest only, SCDs. 2. Cervical insufficiency -Cerclage in place -No loss of fluid, vaginal bleeding, or vaginal discharge -US performed and EFW 941g. -CL 1.44cm at rest and CL 1.13cm with valsalva. -Patient to continue to follow with MFM -NICU is comfortable with pt staying at [facility]. -Defer magnesium for neuroprotection at this time given lack of imminent delivery signs. -PV progesterone (not on formulary but Rx given to family member and pt to take qHS. Discuss with MFM on Monday if continue 17-OHP, but most evidence suggests it is not of additional benefit once PV progesterone for shorted cervix is initiated.) Patient unable to afford outpatient medication, defer at this time. -Repeat CL on today, orders placed. OB team will discuss further management after repeat exam. 3. Headache -S/P Tylenol, Tylenol #3, and Fioricet medications -Plan to continue Fioricet as it "worked best" per patient DW: Antonio Del Angel MD R2 Jul 18, 2017 08:46
[2017-07-18] MEDS: MULTIVIT/MIN/PREN/FOL AC/IRON PRENATAL TAB PO SCH (11:00)
[2017-07-18] MEDS: SODIUM CHLORIDE 0.9% FLUSH 10 ML FLUSH IV FLUSH SCH ×2 (11:01→21:00)
--- NOTE | 2017-07-18 12:33 | HHI.PR ---
Subjective Remarks OBHG 27-year-old , IUP at 26.6. Patient was admitted for shortened cervix with repeat cervical length this morning of 2.7 cm and a positive fibronectin. We discussed at length that although her fibronectin is positive, there is no evidence of labor at this time. Discussed need for bedrest and Objective Vital Signs Date Time Temp Pulse Resp B/P (MAP) Pulse Ox O2 Delivery O2 Flow Rate FiO2 07/18/17 11:03 85 18 114/71 (85) 07/18/17 11:02 98.4 07/18/17 07:41 18 07/18/17 07:38 86 107/66 (80) 07/18/17 07:38 98.0 07/18/17 06:08 84 115/64 (81) 07/18/17 06:00 97.8 07/18/17 06:00 18 07/18/17 00:00 18 07/17/17 22:00 18 07/17/17 19:53 98.1 18 07/17/17 19:50 92 127/79 (95) 07/17/17 18:00 98.1 07/17/17 16:00 18 07/17/17 15:54 101 115/68 (84) 07/17/17 13:00 17 07/17/17 13:00 98.2 Result Diagram: 07/16/171924 Nancy Peace MD Jul 18, 2017 12:33
[2017-07-18] MEDS: ACETAMIN 325 MG/BUTALBITAL 50 MG/CAFFEINE 40 MG TAB PO PRN (13:45)
[2017-07-18] MEDS ORDERED: LACTATED RINGER'S 1000 ML INJ 1,000 ML IV ONE (14:00)
[2017-07-18] MEDS: ALUMINUM/MAGNESIUM/SIMETH 30 ML CUP PO PRN ×2 (19:36)
[2017-07-19 03:08] VITALS: RESP 16; TEMP 98
[2017-07-19 03:09] VITALS: BP 98/56; PULSE 68
[2017-07-19 08:08] VITALS: BP 113/67; PULSE 75; TEMP 98.3
[2017-07-19 08:09] VITALS: RESP 16
[2017-07-19] MEDS: ACETAMIN 325 MG/BUTALBITAL 50 MG/CAFFEINE 40 MG TAB PO PRN (08:10)
[2017-07-19] MEDS: SODIUM CHLORIDE 0.9% FLUSH 10 ML FLUSH IV FLUSH SCH (08:10)
[2017-07-19] MEDS: MULTIVIT/MIN/PREN/FOL AC/IRON PRENATAL TAB PO SCH (08:10)
--- NOTE | 2017-07-19 08:30 | PD.OB.ANTE ---
Subjective Diagnosis: (1) Cervical insufficiency during in second trimester, antepartum Diagnosis: Principal (2) 27 weeks gestation of Diagnosis: Principal Interval History Patient seen and examined this morning [facility] team. No acute events overnight per nursing staff. Yesterday, patient completed repeat cervical length ultrasound that showed an increase in the cervical length from 1.1-1.4 centimeters on admission to 2.7 cm yesterday. Patient also tested positive for fibronectin. Late yesterday afternoon, patient began to feel mild contractions resolved with IV hydration. Currently she has no complaints and denies any fevers, chills, shortness of breath, chest pain, NVD, developing, or calf tenderness. Antepartum ROS: Reports: movement normal, Denies: New complaints, Loss of fluid, Vaginal bleeding, Contractions Objective Vital Signs Vital Signs Date Time Temp Pulse Resp B/P (MAP) Pulse Ox O2 Delivery O2 Flow Rate FiO2 07/19/17 08:09 16 07/19/17 08:08 98.3 75 113/67 (82) 07/19/17 03:09 68 98/56 (70) 07/19/17 03:08 98.0 16 07/18/17 23:04 97.9 16 07/18/17 23:04 97 117/75 (89) 07/18/17 19:17 98.8 07/18/17 19:16 16 07/18/17 19:16 76 117/70 (86) 07/18/17 15:35 90 121/69 (86) 07/18/17 15:34 98.4 18 07/18/17 11:03 85 18 114/71 (85) 07/18/17 11:02 98.4 Lab & Micro Results Test 07/18/17 09:29 Fibronectin POSITIVE Date/Time Source Procedure Growth Status 07/17/17 07:23 Genital Genital Region Group B Streptococcus Screen - Preliminary RESULTS PENDING Resulted Physical Exam GENERAL: Well-nourished, well-developed lying in bed in no acute distress. CARDIOVASCULAR: Regular rate and rhythm without murmurs, gallops, or rubs. RESPIRATORY: Breath sounds equal bilaterally. No accessory muscle use. ABDOMEN/GI: Abdomen soft, non-tender. Fundus: 27 weeks EXTREMITIES: No cyanosis or edema, non-tender, without signs of DVT. NEURO: Afocal. PPT 3. Normal speech and judgment. Assessment and Plan Problem List: (1) Cervical insufficiency during in second trimester, antepartum ICD Codes: O34.32 - Maternal care for cervical incompetence, second trimester Status: Acute (2) 27 weeks gestation of ICD Codes: Z3A.27 - 27 weeks gestation of Status: Acute Assessment and Plan Ms. Gomez is a 27-year-old at 27/0 weeks gestation admitted for abdominal pressure with cerclage in place. 1. 26 weeks gestation of -Continue routine OB care -Encourage oral hydration -Encourage vitamin -[facility] category 1, reassuring without contractions -Bedrest only, SCDs. 2. Cervical insufficiency -Cerclage in place -No loss of fluid, vaginal bleeding, or vaginal discharge -US performed and EFW 941g. -CL 1.44cm at rest and CL 1.13cm with valsalva on admission. -Repeat CL 07/18/17:2.7 cm - fibronectin positive on 07/18/17 -Patient to continue to follow with MFM next week with repeat cervical length -NICU is comfortable with pt staying at [facility]. -Defer magnesium for neuroprotection at this time given lack of imminent delivery signs. -PV progesterone (not on formulary but Rx given to family member and pt to take qHS. Discuss with MFM on Monday if continue 17-OHP, but most evidence suggests it is not of additional benefit once PV progesterone for shorted cervix is initiated.) Patient unable to afford outpatient medication, defer at this time. 3. Headache -S/P Tylenol, Tylenol #3, and Fioricet medications -Plan to continue Fioricet as it "worked best" per patient -Resolved per patient -Discharge: Patient to be discharged home today with strict bed rest. Patient and significant other understanding of medical plan for strict bed rest. Patient to follow up with MFM next week for repeat cervical length. Appointment is scheduled and patient aware DW: Antonio Nicholas MD R2 Jul 19, 2017 08:30
--- NOTE | 2017-07-19 09:34 | HHI.DCPOC ---
Discharge Care Plan Diagnosis: (1) 27 weeks gestation of (2) Cervical insufficiency during in second trimester, antepartum Report Symptoms to Your Doctor -Temperature above 100.5 degrees -Redness, of incision or excessive or foul smelling drainage -Unusual pain or calf pain -Increased vaginal bleeding -Painful or difficulty urinating -Feelings of extreme sadness or anxiety after 2 weeks Goals to Promote Your Health * To prevent worsening of your condition and complications * To maintain your health at the optimal level Directions to Meet Your Goals Take your medications as prescribed Follow your dietary instruction Follow activity as directed Ensure plenty of rest for recovery Drink fluids for hydration Keep your appointments as scheduled Take your immunizations and boosters as scheduled If your symptoms worsen call your PCP, if no PCP go to Urgent Care Center or Emergency Room Smoking is Dangerous to Your Health. Avoid second hand smoke Call the 24-hour crisis hotline for domestic abuse at Antonio Dunne MD R2 Jul 19, 2017 09:34
--- NOTE | 2017-07-19 09:46 | HHI.PR ---
Subjective Remarks OBHG 27-year-old , IUP at 27.0. Patient was admitted for shortened cervix with repeat cervical length this morning of 2.7 cm and a positive fibronectin. We discussed at length Objective Vital Signs Date Time Temp Pulse Resp B/P (MAP) Pulse Ox O2 Delivery O2 Flow Rate FiO2 07/19/17 08:09 16 07/19/17 08:08 98.3 75 113/67 (82) 07/19/17 03:09 68 98/56 (70) 07/19/17 03:08 98.0 16 07/18/17 23:04 97.9 16 07/18/17 23:04 97 117/75 (89) 07/18/17 19:17 98.8 07/18/17 19:16 16 07/18/17 19:16 76 117/70 (86) 07/18/17 15:35 90 121/69 (86) 07/18/17 15:34 98.4 18 07/18/17 11:03 85 18 114/71 (85) 07/18/17 11:02 98.4 Result Diagram: 07/16/171924 Nancy Peace MD Jul 19, 2017 09:46
== END 2017-07-19 11:12 | disposition home or self-care (01) | DRG 782 ==
LOC: HOBED 16:53 → H2EA 19:02
PROVIDERS: ADMIT Obstetrics & Gynecology; ATTEND Obstetrics & Gynecology
DX: O34.32 Maternal care for cervical incompetence, second trimester (principal); O34.219 Maternal care for unspecified type scar from previous cesarean delivery; R51 Headache; Z3A.26 26 weeks gestation of pregnancy; O26.872 Cervical shortening, second trimester
CPT/HCPCS: 76815; 76817; 81001; 82731; 85025; 86850; 86900; 86901; 87081; J7120

== ENCOUNTER → 2017-07-26 | Outpatient (CLI) | payer MEDICAID ==
[~2017-07-26] MED LIST changes: -SULF1TAB23 PO
== END ==
LOC: HPND 07:59
PROVIDERS: ATTEND Obstetrics & Gynecology
DX: O09.212 Supervision of pregnancy with history of pre-term labor, second trimester (principal); O34.32 Maternal care for cervical incompetence, second trimester
CPT/HCPCS: 76816; 76817

== ENCOUNTER 2017-08-04 09:40 | Emergency (ER) | payer MEDICAID ==
--- NOTE | 2017-08-04 10:02 | PD ---
HPI Chief Complaint Contractions at 29 weeks Date Seen: Aug 04, 2017 (Antonio Dunne MD R2) Travel History International Travel<30 Days: No Contact w/Intl Traveler<30Days: No (Antonio Dunne MD R2) History of Present Illness HPI Mrs. Gomez is a27 y/o at 29 weeks gestation presenting to the [facility] with contractions. [facility] Patient had a cerclage placed at 15 weeks gestation and has been continued on [place] progesterone. Patient also had betamethasone complete on 07/07/17 and 07/08. She was hospitalized during that time for cervical dilation to 2 cm and discharged home with complete bedrest. Patient's most recent renal ultrasound on 07/26/17 showed good growth from previous scan without abnormalities. Plan was to rescan on 08/24/17. Weeks Gestation: 29 Para: 3 : 4 (Antonio Dunne MD R2) History Past Medical History Medical History: Denies Significant Hx (Antonio Dunne MD R2) Obstetric History Obstetric History 27y/o @ 26.4wks. She has PNC with [facility]. She has a h/o PTD x3 as follows: 1. 27wk c/s for breech with CI 2. 29wk with CI 3. 31wk with CI on 17-OHP (Antonio Dunne MD R2) Past Surgical History Narrative Surgical Cerclage during this (Antonio Dunne MD R2) Family History Family History: Negative (Antonio Dunne MD R2) Social History Alcohol Use: No Tobacco Use: No Substance Abuse: No (Antonio Dunne MD R2) Allergies-Medications (Allergen,Severity, Reaction): Coded Allergies: pseudoephedrine (Verified Allergy, Severe, TONGUE SWELLS, 06/21/17) Uncoded Allergies: AQUA FRESH TOOTHPASTE (Allergy, Intermediate, TONGUE SWELLS, 12/21/15) . Home Meds Active Scripts Vit W/ Fe Polysacch C (Vitafol Ultra 29-0.6-0.4-200 mg) 29 Mg Iron-1 Mg -200 Mg Cap, 1 TAB PO DAILY, #30 BOTTLE 11 Refills Prov:Lara Solis CNM SUPERVISOR CHEMICAL 06/21/17 Review of Systems Except as stated in HPI: all other systems reviewed are Neg (per HPI) (Antonio Dunne MD R2) Physical Exam Narrative GENERAL: Well-nourished, well-developed patient. SKIN: Warm and dry. HEAD: Normocephalic and atraumatic. EYES: No scleral icterus. No injection or drainage. ENT: No nasal drainage noted. Mucous membranes pink. Airway patent. NECK: Supple, trachea midline. No JVD. CARDIOVASCULAR: Regular rate and rhythm without murmurs, gallops, or rubs. RESPIRATORY: Breath sounds equal bilaterally. No accessory muscle use. ABDOMEN/GI: Abdomen soft, non-tender, bowel sounds present, no rebound, no guarding Gravid to [-] weeks size GENITOURINARY: External Genitalia: intact and normal in appearance Cervix: [-] Dilatation: [-] Effacement: [-] Station: [-] Presentation: [-] Membranes: [intact or ruptured] Uterine Contractions: [-] FHT's: Category: [-] Baseline: [-] Reactive: [-] Variability: [-] Decels: [-] EXTREMITIES: No cyanosis or edema. BACK: Nontender without obvious deformity. No CVA tenderness. NEUROLOGICAL: Awake and alert. Motor and sensory grossly within normal limits. Five out of 5 muscle strength in all muscle groups. Normal speech. (Antonio Dunne MD R2) Data Data Vital Signs Reviewed: Yes Orders Orders Vital Signs (Adult) .ON ADMISSION (08/04/17 09:50) ^ Labor Status (08/04/17 09:50) ^ Non Stress Test (08/04/17 09:50) (Antonio Dunne MD R2) [facility] Medical Record Reviewed: Yes Plan Ms. Gomez is a 27-year-old at 29 weeks gestation admitted for contractions with cerclage in place. 1. 29 weeks gestation of -Continue routine OB care -Encourage oral hydration -Encourage vitamin -F[facility] category 1, reassuring without contractions 2. Contractions -Cerclage in place -No loss of fluid, vaginal bleeding, or vaginal discharge -Betamethasone complete 07/07 and 07/08 - fibronectin positive on 07/18/17 -Transvaginal US ordered for cervical length SDW: Dr. Abrams Update: Transvaginal US report shows cephalic presentation with normal heart rate and rhythm. Cervical length short to 1.6cm, but stable from previous exam. Cerclage intact -Plan to monitor patient for labor. Plan to discharge home with strict bedrest if patient is without contractions. -Patient is not wes after >20min on the monitor with good FHT. Patient to be discharged home on strict bedrest. Patient voices understanding of plan and will continue to follow closely with her OB. (Antonio Dunne MD R2) Attending Attestation Patient seen and evaluated with resident under direct supervision, agree with assessment and plan. (Esequiel Abrams MD) Diagnosis Diagnosis: Primary Impression: 29 weeks gestation of Additional Impression: contractions Disposition: 01 DISCHARGE HOME Condition: Stable Patient Instructions: General Instructions, Labor (ED), Early Labor Signs (ED), Movement (ED), Having Your Baby: The Labor Process (GEN), Premature Rupture of Membranes (ED) Antonio Dunne MD R2 Aug 04, 2017 10:02 Esequiel Abrams MD Aug 04, 2017 13:08
[2017-08-04 10:04] VITALS: BP 120/66; PULSE 113; RESP 18; TEMP 98.5
== END 2017-08-04 12:29 | disposition home or self-care (01) ==
LOC: HOBED 09:40
DX: O47.03 False labor before 37 completed weeks of gestation, third trimester (principal); Z3A.29 29 weeks gestation of pregnancy
CPT/HCPCS: 76815; 76817; 99284

== ENCOUNTER → 2017-08-22 | Outpatient (CLI) | payer MEDICAID | LOC: HPND 08:10 | PROVIDERS: ATTEND Obstetrics & Gynecology | DX: O26.873 Cervical shortening, third trimester (principal); O60.03 Preterm labor without delivery, third trimester | CPT/HCPCS: 76816 ==

== ENCOUNTER → 2017-08-22 | Emergency (ER) | payer MEDICAID ==
[~2017-08-22] MED LIST changes: +TERBUTALINE INJ 1 MG/ML AMP ONE; +TERBUTALINE INJ 1 MG/ML AMP SQ ONE
--- NOTE | 2017-08-22 21:50 | PD ---
HPI Chief Complaint pelvic pressure and ctxs Date Seen: Aug 22, 2017 Time Seen: 21:39 Travel History International Travel<30 Days: No Contact w/Intl Traveler<30Days: No Known Affected Area: No History of Present Illness HPI pt. is a 27 y/o @ 31 6/7 weeks present w/ c/o pelvic pressure and ctxs. pt. w/ h/o ptl&d x 3 at ~ 31 weeks. pt. currently w/ cerclage. pt. states thru out the day has had increasing pelvic pressure and ctxs. +FM, no lof/vb. pt. had u/s today show nl growth, no cervical length done. pt. cervix check and show closed, but mid position w/ pressure of baby in vagina. Weeks Gestation: 31 Para: 3 : 4 Last Menstrual Period: Aug 22, 2017 History Past Medical History Medical History: Denies Significant Hx Obstetric History Obstetric History , h/o ptl&d x 3 Past Surgical History Surgical History: No Previous Surgery Social History Alcohol Use: No Tobacco Use: No Substance Abuse: No Allergies-Medications (Allergen,Severity, Reaction): Coded Allergies: pseudoephedrine (Verified Allergy, Severe, TONGUE SWELLS, 06/21/17) Uncoded Allergies: AQUA FRESH TOOTHPASTE (Allergy, Intermediate, TONGUE SWELLS, 12/21/15) . Home Meds Active Scripts Vit W/ Fe Polysacch C (Vitafol Ultra 29-0.6-0.4-200 mg) 29 Mg Iron-1 Mg -200 Mg Cap, 1 TAB PO DAILY, #30 BOTTLE 11 Refills Prov:Lara Solis CNM [facility] 06/21/17 Review of Systems Except as stated in HPI: all other systems reviewed are Neg Physical Exam Narrative GENERAL: Well-nourished, well-developed patient. SKIN: Warm and dry. HEAD: Normocephalic and atraumatic. EYES: No scleral icterus. No injection or drainage. ENT: No nasal drainage noted. Mucous membranes pink. Airway patent. NECK: Supple, trachea midline. No JVD. CARDIOVASCULAR: Regular rate and rhythm without murmurs, gallops, or rubs. RESPIRATORY: Breath sounds equal bilaterally. No accessory muscle use. BREASTS: Bilateral exam showed no masses , no retractions, no nipple discharge. ABDOMEN/GI: Abdomen soft, non-tender, bowel sounds present, no rebound, no guarding Gravid GENITOURINARY: External Genitalia: intact and normal in appearance Cervix: mid Dilatation: closed Effacement: 80 Station: 0 Presentation: cephalic Membranes: intact Uterine Contractions: irreg FHT's: Category: 1 Reactive: + Variability: mod Decels: none EXTREMITIES: No cyanosis or edema. BACK: Nontender without obvious deformity. No CVA tenderness. NEUROLOGICAL: Awake and alert. Motor and sensory grossly within normal limits. Five out of 5 muscle strength in all muscle groups. Normal speech. Data Data Vital Signs Reviewed: Yes Orders Orders Terbutaline Inj (Brethine Inj) (08/22/17 21:10) Terbutaline Inj (Brethine Inj) (08/22/17 21:15) Urinalysis - C+S If Indicated (08/22/17 21:13) [facility] Medical Record Reviewed: Yes Plan pt. not in labor and cervix is closed. pt. hydrated and given terbutaline. pt. to continue makeena and f/u w/ ob and mfm as sched. pt. s/p betamethasone. pt. to be d/c. given precautions for return. all ? answered. Diagnosis Diagnosis: Primary Impression: 31 weeks gestation of Additional Impressions: H/O pre-term labor H/O delivery, currently Cervical cerclage suture present in third trimester Disposition: 01 DISCHARGE HOME Patient Instructions: General Instructions, Labor (ED), Movement (ED) Departure Forms: Tests/Procedures Shubham Bedoya Jr., MD Aug 22, 2017 21:50
[2017-08-22 21:59] LABS: BILIRUBIN, URINE NEG (NEG); BLOOD, URINE SMALL (NEG); GLUCOSE,URINE NEG (NEG); KETONE, URINE NEG (NEG); MUCUS URINE FEW /lpf (OCC); NITRITE,URINE NEG (NEG); SQUAMOUS EPITHELIAL CELL URINE 3 /hpf (0-5); URINE COLOR YELLOW (YELLW/STRAW); URINE LEUKOCYTE ESTERASE NEG (NEG)
== END | disposition home or self-care (01) ==
LOC: HOBED 20:26
DX: O34.33 Maternal care for cervical incompetence, third trimester (principal); Z3A.31 31 weeks gestation of pregnancy
CPT/HCPCS: 81001; 96372; J3105

== ENCOUNTER 2017-08-27 21:49 | Emergency (ER) | payer MEDICAID ==
[~2017-08-27 21:49] MED LIST changes: -TERBUTALINE INJ 1 MG/ML AMP ONE; -TERBUTALINE INJ 1 MG/ML AMP SQ ONE
[2017-08-27 23:06] LABS: BILIRUBIN, URINE NEG (NEG); BLOOD, URINE SMALL (NEG); GLUCOSE,URINE NEG (NEG); KETONE, URINE NEG (NEG); MUCUS URINE FEW /lpf (OCC); NITRITE,URINE NEG (NEG); PH, URINE 6.5 (5.0-8.5); SQUAMOUS EPITHELIAL CELL URINE <1 /hpf (0-5); URINE COLOR YELLOW (YELLW/STRAW); URINE LEUKOCYTE ESTERASE NEG (NEG)
--- NOTE | 2017-08-27 23:13 | PD ---
HPI Chief Complaint ctxs Date Seen: Aug 27, 2017 Time Seen: 23:06 Travel History International Travel<30 Days: No Contact w/Intl Traveler<30Days: No Known Affected Area: No History of Present Illness HPI pt. is a 27 y/o @ 32 4/7 weeks w/ c/o ctxs. pt. w/ h/o incompetent cervix and cerclage states been having ctxs thruout the day that have increased in intensity and freq thruout the day. +FM, no lof/vb. pt. cervix checked at present closed/hawa/high/mid. Weeks Gestation: 32 Para: 3 : 4 History Past Medical History Medical History: Denies Significant Hx Obstetric History Obstetric History , x 3, incompetent cervix w/ jenny and cerclage this preg. h/o ptl &d Past Surgical History Surgical History: No Previous Surgery Family History Family History: Negative Social History Alcohol Use: No Tobacco Use: No Substance Abuse: No Allergies-Medications (Allergen,Severity, Reaction): Coded Allergies: pseudoephedrine (Verified Allergy, Severe, TONGUE SWELLS, 06/21/17) Uncoded Allergies: AQUA FRESH TOOTHPASTE (Allergy, Intermediate, TONGUE SWELLS, 12/21/15) . Home Meds Active Scripts Vit W/ Fe Polysacch C (Vitafol Ultra 29-0.6-0.4-200 mg) 29 Mg Iron-1 Mg -200 Mg Cap, 1 TAB PO DAILY, #30 BOTTLE 11 Refills Prov:Lara Solis CNM [facility] 06/21/17 Review of Systems Except as stated in HPI: all other systems reviewed are Neg Physical Exam Narrative GENERAL: Well-nourished, well-developed patient. SKIN: Warm and dry. HEAD: Normocephalic and atraumatic. EYES: No scleral icterus. No injection or drainage. ENT: No nasal drainage noted. Mucous membranes pink. Airway patent. NECK: Supple, trachea midline. No JVD. CARDIOVASCULAR: Regular rate and rhythm without murmurs, gallops, or rubs. RESPIRATORY: Breath sounds equal bilaterally. No accessory muscle use. ABDOMEN/GI: Abdomen soft, non-tender, bowel sounds present, no rebound, no guarding Gravid GENITOURINARY: External Genitalia: intact and normal in appearance Cervix: mid Dilatation: closed Effacement: 80 Station:high Uterine Contractions: irreg FHT's: Category: 1 Reactive: + Variability: mod EXTREMITIES: No cyanosis or edema. BACK: Nontender without obvious deformity. No CVA tenderness. NEUROLOGICAL: Awake and alert. Motor and sensory grossly within normal limits. Five out of 5 muscle strength in all muscle groups. Normal speech. Data Data Vital Signs Reviewed: Yes Orders Orders Urinalysis - C+S If Indicated (08/27/17 22:58) Rheologist Clear For Discharge (08/27/17 ) Labs Laboratory Tests Test 08/27/17 22:25 Urine Color YELLOW Urine Turbidity CLEAR Urine pH 6.5 Urine Specific [place] 1.021 Urine Protein NEG Urine Glucose (UA) NEG Urine Ketones NEG Urine Occult Blood SMALL Urine Nitrite NEG Urine Bilirubin NEG Urine Urobilinogen LESS THAN 2.0 Urine Leukocyte Esterase NEG Urine RBC 2 Urine WBC 1 Urine Squamous Epithelial Cells <1 Urine Mucus FEW Microscopic Urinalysis Comment CULT NOT INDICATED MDM Medical Record Reviewed: Yes Plan pt.not in active labor. condition d/w pt. pt. to be d/c to home. given precautions for return. all ? answered. f/u as sched. Diagnosis Diagnosis: Primary Impression: 32 weeks gestation of Additional Impressions: Cervical cerclage suture present in third trimester Uterine contractions during Disposition: 01 DISCHARGE HOME Patient Instructions: General Instructions Departure Forms: Tests/Procedures Shubham Bedoya Jr., MD Aug 27, 2017 23:13
== END 2017-08-27 23:22 | disposition home or self-care (01) ==
LOC: HOBED 21:49
DX: O99.89 Other specified diseases and conditions complicating pregnancy, childbirth and the puerperium (principal); N85.8 Other specified noninflammatory disorders of uterus; O34.33 Maternal care for cervical incompetence, third trimester; Z3A.32 32 weeks gestation of pregnancy
CPT/HCPCS: 59025; 81001

== ENCOUNTER 2017-09-09 09:39 | Emergency (ER) | payer MEDICAID ==
--- NOTE | 2017-09-09 10:28 | PD ---
HPI Chief Complaint Bleeding vaginally and some contractions Date Seen: Sep 09, 2017 Time Seen: 10:15 Travel History International Travel<30 Days: No Contact w/Intl Traveler<30Days: No Known Affected Area: No History of Present Illness HPI 27-year-old black female at 34 weeks is a previous section and [facility] and presents complaining of some vaginal bleeding less than a period. Today she noticed it when she went to the bathroom and wiped she saw pink to red blood on the TP. Also having some contraction activity. The heart rate tracing is reactive. Patient has a cervical cerclage and is a history of . She has had a cerclage and since the early second trimester. She denies vaginal discharge itching odor irritation Weeks Gestation: 34 Para: 3 : 4 History Obstetric History Obstetric History Previous with subsequent VBACs 2 but all early less than 34 weeks Cervical cerclage placed in the second trimester Past Surgical History Narrative Surgical Cervical cerclage this Social History Alcohol Use: No Tobacco Use: No Substance Abuse: No Allergies-Medications (Allergen,Severity, Reaction): Coded Allergies: pseudoephedrine (Verified Allergy, Severe, TONGUE SWELLS, 09/09/17) Uncoded Allergies: AQUA FRESH TOOTHPASTE (Allergy, Intermediate, TONGUE SWELLS, 12/21/15) . Home Meds Active Scripts Vit W/ Fe Polysacch C (Vitafol Ultra 29-0.6-0.4-200 mg) 29 Mg Iron-1 Mg -200 Mg Cap, 1 TAB PO DAILY, #30 BOTTLE 11 Refills Prov:Lara Solis CNM [facility] 06/21/17 Review of Systems General / Constitutional: No: Fever, Weight Gain, Chills, Other Eyes: No: Diploplia, Blurred Vision, Visual changes, Pain, Photophobia HENT: No: Headaches, Vertigo, Lightheadedness Cardiovascular: No: Irregular Rhythm, Chest Pain or Discomfort, Palpitations, Tachycardia, Syncope, Varicosities, Edema, Cyanosis Respiratory: No: Cough, Short of Breath, Other Gastrointestinal: Abdominal Pain, No: Nausea, Vomiting, Diarrhea Genitourinary: Vaginal Bleeding, No: Decreased Urinary Output, Oliguria Musculoskeletal: No: Limited ROM, Weakness, Cramping, Edema, Pain Skin: No Rash, No Itching, No Dryness, No Lumps, No Change in Pigmentation, No Change in Nails, No Alopecia, No Lesions Neurologic: No: Weakness, Dizziness, Syncope, Focal Abnormalities, Coordination Problem, Headache, Slurred Speech, Seizures Psychiatric: No: Depression, Suicidal Ideations, Homicidal Ideation Endocrine: No: Heat Intolerance, Cold Intolerance, Polydipsia, Polyuria, Other Physical Exam Narrative GENERAL: Well-nourished, well-developed patient. SKIN: Warm and dry. HEAD: Normocephalic and atraumatic. EYES: No scleral icterus. No injection or drainage. ENT: No nasal drainage noted. Mucous membranes pink. Airway patent. NECK: Supple, trachea midline. No JVD. CARDIOVASCULAR: Regular rate and rhythm without murmurs, gallops, or rubs. RESPIRATORY: Breath sounds equal bilaterally. No accessory muscle use. BREASTS: Bilateral exam showed no masses , no retractions, no nipple discharge. ABDOMEN/GI: Abdomen soft, non-tender, bowel sounds present, no rebound, no guarding Gravid to [-34] weeks size Fundal Height: [-34] GENITOURINARY: External Genitalia: intact and normal in appearance no blood Speculum exam--no blood seen in the vaginal vault cervix appears thick uninfected there is minimal white clumpy discharge is physiologic the Prolene blue suture seen from the cerclage Cervix: [Fingertip-] Dilatation: 1 Effacement: [Thick-] Station: [-3] Membranes: [intact ] Uterine Contractions: [-none] FHT's: Category: [-1] Baseline: [133-] Reactive: [-R] Variability: [mod-] Decels: [0-] EXTREMITIES: No cyanosis or edema. BACK: Nontender without obvious deformity. No CVA tenderness. NEUROLOGICAL: Awake and alert. Motor and sensory grossly within normal limits. Five out of 5 muscle strength in all muscle groups. Normal speech. MDM Interpretation(s) 27-year-old black female 34 weeks previous and patient of [facility] presents complaining of some vaginal bleeding this morning less than a. Just noticed on the toilet paper and some contractions. Denies leakage of fluid, heart rate tracing is reactive no regular contractions seen. Speculum exam done showed no blood in the vaginal vault no sign of infection or yeast. Cerclage seen appears to be intact cervix appears thick and palpates as thick and fingertip at the external os, cannot reach the internal os Plan Plan to observe the patient on OB ED for at least half an hour and noticed there is any bleeding after her exam and when she gets up to go to the bathroom will also monitor the fetus for reactivity. We will likely be able to be discharged home today to increased bed rest over the next 1-2 days Diagnosis Diagnosis: Primary Impression: Vaginal bleeding during Additional Impression: Cervical cerclage suture present in third trimester Disposition: 01 DISCHARGE HOME Condition: Stable Arnold Valdes II, MD Sep 09, 2017 10:28
== END 2017-09-09 11:19 | disposition home or self-care (01) ==
LOC: HOBED 09:39
DX: O46.93 Antepartum hemorrhage, unspecified, third trimester (principal); Z3A.34 34 weeks gestation of pregnancy
CPT/HCPCS: 59025

== ENCOUNTER 2017-09-25 20:33 | Emergency (ER) | payer MEDICAID ==
--- NOTE | 2017-09-25 21:32 | PD ---
HPI Chief Complaint Contractions Date Seen: Sep 25, 2017 Time Seen: 21:21 Travel History International Travel<30 Days: No Contact w/Intl Traveler<30Days: No Known Affected Area: No History of Present Illness HPI 27-year-old black female G4P 3 36--37 weeks PCS wants a presents complaining of contractions. She has a history of cervical cerclage in place this [facility] and is intact she has no bleeding or leakage of fluid. heart rate tracing is reactive and she is not wes at this time is some minor uterine irritability Weeks Gestation: 36 Para: 3 : 4 History Obstetric History Obstetric History Previous deliveries first was for breech the 2 subsequent babies were babies premature, 26, 27, 31 weeks, patient requested a cervical cerclage Past Surgical History Narrative Surgical Cervical cerclage placement Social History Alcohol Use: No Tobacco Use: No Substance Abuse: No Allergies-Medications (Allergen,Severity, Reaction): Coded Allergies: pseudoephedrine (Verified Allergy, Severe, TONGUE SWELLS, 09/09/17) Uncoded Allergies: AQUA FRESH TOOTHPASTE (Allergy, Intermediate, TONGUE SWELLS, 12/21/15) . Home Meds Active Scripts Vit W/ Fe Polysacch C (Vitafol Ultra 29-0.6-0.4-200 mg) 29 Mg Iron-1 Mg -200 Mg Cap, 1 TAB PO DAILY, #30 BOTTLE 11 Refills Prov:Kenton Solisinta Victor HugoLeanna [facility] 06/21/17 Review of Systems General / Constitutional: No: Fever, Weight Gain, Chills, Other Eyes: No: Diploplia, Blurred Vision, Visual changes, Pain, Photophobia HENT: No: Headaches, Vertigo, Lightheadedness Cardiovascular: No: Irregular Rhythm, Chest Pain or Discomfort, Palpitations, Tachycardia, Syncope, Varicosities, Edema, Cyanosis Respiratory: No: Cough, Short of Breath, Other Gastrointestinal: Abdominal Pain, No: Nausea, Vomiting, Diarrhea Genitourinary: No: Decreased Urinary Output, Oliguria Musculoskeletal: No: Limited ROM, Weakness, Cramping, Edema, Pain Skin: No Rash, No Itching, No Dryness, No Lumps, No Change in Pigmentation, No Change in Nails, No Alopecia, No Lesions Neurologic: No: Weakness, Dizziness, Syncope, Focal Abnormalities, Coordination Problem, Headache, Slurred Speech, Seizures Psychiatric: No: Depression, Suicidal Ideations, Homicidal Ideation Endocrine: No: Heat Intolerance, Cold Intolerance, Polydipsia, Polyuria, Other Physical Exam Narrative GENERAL: Well-nourished, well-developed patient. SKIN: Warm and dry. HEAD: Normocephalic and atraumatic. EYES: No scleral icterus. No injection or drainage. ENT: No nasal drainage noted. Mucous membranes pink. Airway patent. NECK: Supple, trachea midline. No JVD. CARDIOVASCULAR: Regular rate and rhythm without murmurs, gallops, or rubs. RESPIRATORY: Breath sounds equal bilaterally. No accessory muscle use. BREASTS: Bilateral exam showed no masses , no retractions, no nipple discharge. ABDOMEN/GI: Abdomen soft, non-tender, bowel sounds present, no rebound, no guarding Gravid to [-36] weeks size Fundal Height: [36-] GENITOURINARY: External Genitalia: intact and normal in appearance BUS glands: [-] Cervix: [ant-] cerclage palpable Dilatation: [-1] Effacement: [70-] Station: [+1] head low in pelvis Presentation: [-vtx] Membranes: [intact ] Uterine Contractions: [no reg CTX + iritability-] FHT's: Category: [-1] Baseline: [133-] Reactive: [R-] Variability: [mod-] Decels: [-none] EXTREMITIES: No cyanosis or edema. BACK: Nontender without obvious deformity. No CVA tenderness. NEUROLOGICAL: Awake and alert. Motor and sensory grossly within normal limits. Five out of 5 muscle strength in all muscle groups. Normal speech. MDM Interpretation(s) Patient is a 27-year-old 36-37 weeks PCS [facility] history of cervical incontinence in the past and cervical cerclage this , she complains of contractions on the monitor and her cervix is 1/70/+ 1 station/vertex low in the pelvis, tracing is reactive, Plan Plan to discharge patient return in 2 days to get her cerclage cut out, she is to return here for increasing bleeding, leakage of fluid, contraction pain. Diagnosis Diagnosis: Primary Impression: Abdominal pain during in third trimester Additional Impressions: Cervical cerclage suture present in third trimester Previous delivery, antepartum Disposition: 01 DISCHARGE HOME Condition: Stable Arnold Valdes II, MD Sep 25, 2017 21:32
== END 2017-09-25 21:42 | disposition home or self-care (01) ==
LOC: HOBED 20:33
DX: O26.893 Other specified pregnancy related conditions, third trimester (principal); R10.9 Unspecified abdominal pain; O34.219 Maternal care for unspecified type scar from previous cesarean delivery; Z3A.36 36 weeks gestation of pregnancy
CPT/HCPCS: 99283

== ENCOUNTER 2017-09-28 20:43 | Emergency (ER) | payer MEDICAID ==
--- NOTE | 2017-09-28 21:38 | PD ---
HPI Chief Complaint pelvic pressure Date Seen: September 28, 2017 Travel History International Travel<30 Days: No Contact w/Intl Traveler<30Days: No Known Affected Area: No History of Present Illness HPI 27y/o @ 37.1wks. She has [facility] at [facility]. She presents today with c/o pelvic pressure. She has a h/o PTD x3 2' to CI. (First CS, then 2 VBACs). She had a ppx cerclage placed at 14wks this preg. She was also on 17- OHP weekly this preg. She was seen in the clinic yesterday and the cerclage was removed. She was checked and found to be 4cm dilated. She denies ctx or LOF. Some VB following yesterday's procedure/check. She reports +FM but decreased today. Weeks Gestation: 37 Para: 3 : 4 History Past Medical History Medical History: Denies Significant Hx Obstetric History Obstetric History 1. c/s @ 27wks 2. at 29wks 3. at 31wks, on 17-OHP 4. current, on 17-OHP, s/p ppx cerclage Past Surgical History Narrative Surgical CS x1 cerclage x1 Family History Family History: Negative Social History Alcohol Use: No Tobacco Use: No Substance Abuse: No Allergies-Medications (Allergen,Severity, Reaction): Coded Allergies: pseudoephedrine (Verified Allergy, Severe, TONGUE SWELLS, 09/09/17) Uncoded Allergies: AQUA FRESH TOOTHPASTE (Allergy, Intermediate, TONGUE SWELLS, 12/21/15) . Home Meds Active Scripts Vit W/ Fe Polysacch C (Vitafol Ultra 29-0.6-0.4-200 mg) 29 Mg Iron-1 Mg -200 Mg Cap, 1 TAB PO DAILY, #30 BOTTLE 11 Refills Prov:Lara Solis CNM [facility] 06/21/17 Review of Systems Except as stated in HPI: all other systems reviewed are Neg Physical Exam Narrative General: well developed, well nourished, no acute distress HEENT: normocephalic atraumatic, extraocular movements intact, neck supple Abdomen: soft, gravid, nontender, nondistended Uterus: fundus term Extremities: full range of motion Skin: normal coloration, no rashes, no suspicious skin lesions noted Neurologic: cranial nerves 2-12 grossly intact, normal muscle tone, normal gait Psychiatric: normal mood and affect, appropriate FHTs: 130s, +accels, spontaneous 2m decel to 100s, moderate variability, reactive [place]: no ctx Cvx: 80/-1 Data Data Vital Signs Reviewed: Yes Orders Orders Vital Signs (Adult) .ON ADMISSION (09/28/17 21:27) ^ Labor Status (09/28/17 21:27) ^ Non Stress Test (09/28/17 21:27) MDM Plan 27y/o @ 37.1wks with pelvic pressure. -- s/p cerclage removal yesterday -- cvx unchanged from yesterday -- toco quiet -- FHTs had spontaneous decel but otherwise cat 1; will monitor for a few hours to ensure stability Diagnosis Diagnosis: Primary Impression: 37 weeks gestation of Additional Impressions: Cervical incompetence affecting , antepartum Pelvic pressure in Louis Hermosillo MD September 28, 2017 21:38
== END 2017-09-29 00:25 | disposition home or self-care (01) ==
LOC: HOBED 20:43
DX: O34.33 Maternal care for cervical incompetence, third trimester (principal); Z3A.37 37 weeks gestation of pregnancy
CPT/HCPCS: 59025

== ENCOUNTER 2017-09-30 08:04 | Inpatient (IN) | payer MEDICAID ==
[2017-09-30] VITALS (42 sets, daily range): BP systolic 102–131; BP diastolic 61–93; PULSE 60–132; RESP 16–22; TEMP 98.4; O2SAT 99
[2017-09-30] MEDS ORDERED: MINERAL OIL 10 ML VIAL TOPICAL PRN (08:45)
[2017-09-30] MEDS ORDERED: SODIUM CHLORID 0.9% 500 ML INJ 500 ML IV PRN (08:45)
[2017-09-30] MEDS ORDERED: CITRIC ACID-SODIUM CITRATE LIQ 30 ML UDC PO SCH (08:45)
[2017-09-30] MEDS ORDERED: LACTATED RINGER'S 1000 ML INJ 1,000 ML IV SCH (08:45)
[2017-09-30] MEDS ORDERED: LIDOCAINE HCL 1% 50 ML VIAL I-DERMAL PRN (08:45)
[2017-09-30] MEDS ORDERED: LIDOCAINE HCL 1% 50 ML VIAL INFIL PRN (08:45)
[2017-09-30] MEDS ORDERED: LACTATED RINGER'S 1000 ML INJ 1,000 ML IV PRN (08:45)
--- NOTE | 2017-09-30 08:58 | HHI.HP ---
HPI Chief Complaint Contractions since last evening it every 5-6 minutes Date Seen: September 30, 2017 Time Seen: 08:45 Travel History International Travel<30 Days: No Contact w/Intl Traveler<30Days: No Known Affected Area: No History of Present Illness HPI 27-year-old black female 37-38 weeks PCS with complaints of contractions every 5-6 minutes since last evening. Patient had her cerclage cut out [address] [facility] she was told that time she was 4 cm dilated. Here on OB ED she is station contractions are spaced out fairly far the patient has a history of just passive cervical dilation in the past. She had a in 2008 and 2 VBACs after that all babies were at 27-31 weeks Weeks Gestation: 37 Para: 3 : 4 History Obstetric History Obstetric History History of incompetent cervix/passive cervical dilation in the early third trimester and her past pregnancies with the first baby at 27 weeks and then subsequent VBACs at 29 and 31 weeks Patient had a cerclage put in with this and it was cut out on 09/28. Patient had been on Raisa through this as well Past Surgical History Narrative Surgical with first Social History Alcohol Use: No Tobacco Use: No Substance Abuse: No Allergies-Medications (Allergen,Severity, Reaction): Coded Allergies: pseudoephedrine (Verified Allergy, Severe, TONGUE SWELLS, 09/09/17) Uncoded Allergies: AQUA FRESH TOOTHPASTE (Allergy, Intermediate, TONGUE SWELLS, 12/21/15) . Home Meds Active Scripts Vit W/ Fe Polysacch C (Vitafol Ultra 29-0.6-0.4-200 mg) 29 Mg Iron-1 Mg -200 Mg Cap, 1 TAB PO DAILY, #30 BOTTLE 11 Refills Prov:Lara Solis CNM [employer]IL ENTRY CLERK 06/21/17 Review of Systems General / Constitutional: No: Fever, Weight Gain, Chills, Other Eyes: No: Diploplia, Blurred Vision, Visual changes, Pain, Photophobia HENT: No: Headaches, Vertigo, Lightheadedness Cardiovascular: No: Irregular Rhythm, Chest Pain or Discomfort, Palpitations, Tachycardia, Syncope, Varicosities, Edema, Cyanosis Respiratory: No: Cough, Short of Breath, Other Gastrointestinal: Abdominal Pain, No: Nausea, Vomiting, Diarrhea Genitourinary: No: Decreased Urinary Output, Oliguria Musculoskeletal: No: Limited ROM, Weakness, Cramping, Edema, Pain Skin: No Rash, No Itching, No Dryness, No Lumps, No Change in Pigmentation, No Change in Nails, No Alopecia, No Lesions Neurologic: No: Weakness, Dizziness, Syncope, Focal Abnormalities, Coordination Problem, Headache, Slurred Speech, Seizures Psychiatric: No: Depression, Suicidal Ideations, Homicidal Ideation Endocrine: No: Heat Intolerance, Cold Intolerance, Polydipsia, Polyuria, Other Physical Exam Narrative GENERAL: Well-nourished, well-developed patient. SKIN: Warm and dry. HEAD: Normocephalic and atraumatic. EYES: No scleral icterus. No injection or drainage. ENT: No nasal drainage noted. Mucous membranes pink. Airway patent. NECK: Supple, trachea midline. No JVD. CARDIOVASCULAR: Regular rate and rhythm without murmurs, gallops, or rubs. RESPIRATORY: Breath sounds equal bilaterally. No accessory muscle use. BREASTS: Bilateral exam showed no masses , no retractions, no nipple discharge. ABDOMEN/GI: Abdomen soft, non-tender, bowel sounds present, no rebound, no guarding Gravid to [37-] weeks size Fundal Height: [-37] GENITOURINARY: External Genitalia: intact and normal in appearance BUS glands: [-] Cervix: [-ant] Dilatation: [-6] Effacement: [90-] Station: [0] Presentation: [vtx-] Membranes: [intact ] Uterine Contractions: [q6-8 min-] FHT's: Category: [1-] Baseline: [133-] Reactive: [R-] Variability: [mod-] Decels: [none-] EXTREMITIES: No cyanosis or edema. BACK: Nontender without obvious deformity. No CVA tenderness. NEUROLOGICAL: Awake and alert. Motor and sensory grossly within normal limits. Five out of 5 muscle strength in all muscle groups. Normal speech. Caprini VTE Risk Assessment Caprini VTE Risk Assessment: No/Low Risk (score <= 1) Caprini Risk Assessment Model Point Value = 1 Point Value = 2 Point Value = 3 Point Value = 5 Age 41-60 Minor surgery BMI > 25 kg/m2 Swollen legs Varicose veins or History of unexplained or recurrent spontaneous Oral contraceptives or hormone replacement Sepsis (< 1 month) Serious lung disease, including pneumonia (< 1 month) Abnormal pulmonary function Acute myocardial infarction Congestive heart failure (< 1 month) History of inflammatory bowel disease Medical patient at bed rest Age 61-74 Arthroscopic surgery Major open surgery (> 45 min) Laparoscopic surgery (> 45 min) Malignancy Confined to bed (> 72 hours) Immobilizing plaster cast Central venous access Age >= 75 History of VTE Family history of VTE Factor V Leiden Prothrombin [id number] Lupus anticoagulant Anticardiolipin antibodies Elevated serum homocysteine Heparin-induced thrombocytopenia Other congenital or acquired thrombophilia Stroke (< 1 month) Elective arthroplasty Hip, pelvis, or leg fracture Acute spinal cord injury (< 1 month) Prophylaxis Regimen Total Risk Factor Score Risk Level Prophylaxis Regimen 0-1 Low Early ambulation 2 Moderate Order ONE of the following: *Sequential Compression Device (SCD) *Heparin 5000 units SQ BID 3-4 Higher Order ONE of the following medications: *Heparin 5000 units SQ TID *Enoxaparin/Lovenox 40 mg SQ daily (WT < 150 kg, CrCl > 30 mL/min) *Enoxaparin/Lovenox 30 mg SQ daily (WT < 150 kg, CrCl > 10-29 mL/min) *Enoxaparin/Lovenox 30 mg SQ BID (WT < 150 kg, CrCl > 30 mL/min) AND/OR *Sequential Compression Device (SCD) 5 or more Highest Order ONE of the following medications: *Heparin 5000 units SQ TID (Preferred with Epidurals) *Enoxaparin/Lovenox 40 mg SQ daily (WT < 150 kg, CrCl > 30 mL/min) *Enoxaparin/Lovenox 30 mg SQ daily (WT < 150 kg, CrCl > 10-29 mL/min) *Enoxaparin/Lovenox 30 mg SQ BID (WT < 150 kg, CrCl > 30 mL/min) AND *Sequential Compression Device (SCD) Data Data Orders Orders Ob (2e) Additional Admit Info (09/30/17 08:44) Admit To Inpatient (09/30/17 ) Vital Signs (Adult) .Per protocol (09/30/17 08:45) Heart (09/30/17 08:45) Amnioinfusion (09/30/17 08:45) Urinary Catheter Management .ONCE (09/30/17 08:45) Lactated Ringer's 1000 Ml Inj (Lr 1000 M (09/30/17 08:45) Lactated Ringer's 1000 Ml Inj (Lr 1000 M (09/30/17 08:45) Sodium Chlorid 0.9% 500 Ml Inj (Ns 500 M (09/30/17 08:45) Sodium Chlor 0.9% 1000 Ml Inj (Ns 1000 M (09/30/17 09:05) Lidocaine 1% Inj (50 Ml) (Xylocaine 1% I (09/30/17 08:45) Citric Acid-Sodium Citrate Liq (Bicitra (09/30/17 08:45) Fentanyl Inj (Fentanyl Inj) (09/30/17 08:45) Fentanyl Inj (Fentanyl Inj) (09/30/17 08:45) Complete Blood Count With Diff (09/30/17 08:45) Hold Clot (09/30/17 08:45) Abo/Rh Blood Type (09/30/17 08:45) Urinalysis - C+S If Indicated (09/30/17 08:45) Drug Screen, Random Urine (09/30/17 08:45) Ob/Psych Drug Screen, Urine (09/30/17 08:45) Resp Oxygen Non Rebreathe Mask (09/30/17 ) ^ Epidural / Intrathecal Infus (09/30/17 08:45) Oxytocin 30 Units-500ml Premix (Pitocin (09/30/17 08:45) Lidocaine 1% Inj (50 Ml) (Xylocaine 1% I (09/30/17 08:45) Light Mineral Oil (Muri-Lube Oil) (09/30/17 08:45) Group B Strep: Negative Assessment/Plan Assessment and Plan 27-year-old black female at 37-38 weeks with labor onset cervical dilation 6/90/0 with very little uterine activity passively dilates. And she states that with her previous VBACs she would walk-in 9 cm. Patient now complains of regular contractions every 5-6 minutes since last evening here on OB ED were picking up more spaced out than that she does not seem to be in a lot of pain from the appearance however she is dilated quite a bit heart rate tracing is reactive Plan-admit to labor and delivery, manage labor appropriately, anticipate vaginal delivery Arnold Valdes II, MD September 30, 2017 08:58
[2017-09-30] MEDS ORDERED: OXYTOCIN 30 UNITS-500ML PREMIX 500 ML IV ONE (09:00)
[2017-09-30] MEDS ORDERED: SODIUM CHLOR 0.9% 1000 ML INJ 1,000 ML IV PRN (09:05)
[2017-09-30 09:13] LABS: BASOPHIL % 0.2 % (0.0-2.0); EOSINOPHIL % 0.4 % (0.0-4.0); HEMATOCRIT 29.5 % (35.0-46.0); HEMOGLOBIN 10.2 GM/DL (11.6-15.3); LYMPH % 50.6 % (9.0-44.0); LYMPHOCYTE # 4.1 TH/MM3 (1.0-4.8); MEAN CELL VOLUME 90.3 FL (80.0-100.0); MEAN CORPUSCULAR HEMOGLOBIN 31.2 PG (27.0-34.0); MEAN CORPUSCULAR HGB CONC 34.6 % (32.0-36.0); MEAN PLATELET VOLUME 6.7 FL (7.0-11.0); MONO % 12.4 % (0.0-8.0); NEUT % 36.4 % (16.0-70.0); PLATELET COUNT 202 TH/MM3 (150-450); RED BLOOD COUNT 3.27 MIL/MM3 (4.00-5.30); RED CELL DISTRIBUTION WIDTH 15.6 % (11.6-17.2); WHITE BLOOD COUNT 8.1 TH/MM3 (4.0-11.0)
[2017-09-30 09:17] LABS: BILIRUBIN, URINE NEG (NEG); BLOOD, URINE MOD (NEG); GLUCOSE,URINE NEG (NEG); KETONE, URINE NEG (NEG); NITRITE,URINE NEG (NEG); PH, URINE 6.5 (5.0-8.5); URINE COLOR YELLOW (YELLW/STRAW); URINE LEUKOCYTE ESTERASE SMALL (NEG)
[2017-09-30 09:24] LABS: HYALINE CAST, URINE 2 /lpf (RARE); MUCUS URINE FEW /lpf (OCC); SQUAMOUS EPITHELIAL CELL URINE 5 /hpf (0-5)
[2017-09-30 09:26] LABS: BACTERIA, URINE FEW /hpf
[2017-09-30] MEDS ORDERED: OXYTOCIN 30 UNITS-500ML PREMIX 500 ML IV PRN (12:15)
[2017-09-30] MEDS ORDERED: FAMOTIDINE 20 MG TAB PO ONE (12:30)
[2017-09-30] MEDS ORDERED: fentaNYL 2MCG-BUPIV 0.125% INJ 100 ML ONE (13:29)
[2017-09-30] MEDS ORDERED: LIDOCAINE HCL 1% PF 30 ML VIAL ONE (13:52)
[2017-09-30] MEDS ORDERED: LIDOCAINE 2%/EPINEPHrine PF 1:200,000 20ML SDV ONE (13:55)
--- NOTE | 2017-09-30 14:03 | PD.OB.DELI ---
Weeks gestation: 37 Gest age assessed date: September 30, 2017 Gest age assessed time: 14:00 Pt started active labor?: Yes Active labor start date: September 30, 2017 Active labor start time: 11:00 Medical induction of labor?: No Artificial rupture of membrane: Yes Anesthesia: None Episiotomy: None Presentation: Occiput anterior Nuchal Cord: None Delayed cord clamping (45 sec): Yes : Male Delivery date: September 30, 2017 Delivery time: 14:01 One Minute : 8 Five Minute : 9 Placenta: Spontaneous delivery Laceration: Vaginal laceration, 2 deg Repair: Vicryl running Estimated blood loss: 200 Additional Information The patient progressed rapidly and pushed with just 2 contractions to deliver the OA vertex over a second-degree vaginal laceration. There was no delay for the shoulders. The remainder the infant followed easily and the baby was passed to the maternal abdomen were delayed cord clamping was accomplished. Esequiel Abrams MD September 30, 2017 14:03
[2017-09-30] MEDS ORDERED: WITCH HAZEL 50%/GLYCERIN 12.5% 40 PAD JAR TOPICAL PRN (14:15)
[2017-09-30] MEDS ORDERED: ACETAMINOPHEN 325 MG TAB PO PRN (14:15)
[2017-09-30] MEDS ORDERED: ALUMINUM/MAGNESIUM/SIMETH 30 ML CUP PO PRN (14:15)
[2017-09-30] MEDS ORDERED: ONDANSETRON ODT 4 MG TAB PO PRN (14:15)
[2017-09-30] MEDS ORDERED: DOCUSATE SODIUM 50 MG/SENNA 8.6 MG TAB PO PRN (14:15)
[2017-09-30] MEDS ORDERED: SODIUM CHLORIDE 0.9% FLUSH 10 ML FLUSH IV FLUSH PRN (14:15)
[2017-09-30] MEDS ORDERED: BENZOCAINE 20% TOPICAL SPRAY 60 ML CAN TOPICAL PRN (14:15)
[2017-09-30] MEDS ORDERED: OXYTOCIN 30 UNITS-500ML PREMIX 500 ML IV SCH (14:30)
[2017-09-30] MEDS: IBUPROFEN 800 MG TAB PO PRN ×2 (15:14→22:53)
[2017-09-30] MEDS ORDERED: DIPHTH/TETANUS/ACEL PERTUSSIS (BOOSTER) 0.5 ML VIAL/PFS IM ONE (16:00)
[2017-09-30] MEDS ORDERED: MEASLES, MUMPS, RUBELLA VACCINE 0.5 ML VIAL SQ ONE (16:00)
[2017-09-30] MEDS: oxyCODONE/ACETAMINOPHEN 5 MG/325 MG TAB PO PRN ×2 (17:14→22:54)
[2017-09-30] MEDS ORDERED: ZOLPIDEM TARTRATE 5 MG TAB PO PRN (21:00)
[2017-09-30] MEDS ORDERED: SODIUM CHLORIDE 0.9% FLUSH 10 ML FLUSH IV FLUSH SCH (21:00)
[2017-10-01] MEDS: IBUPROFEN 800 MG TAB PO PRN (06:36)
[2017-10-01] MEDS: oxyCODONE/ACETAMINOPHEN 5 MG/325 MG TAB PO PRN (06:36)
--- NOTE | 2017-10-01 08:00 | HHI.OB ---
Subjective Post Day: 1 Remarks Patient is a 27-year-old delivered at 37 weeks and 3 days. Patient is day 1 after NVD. Patient's pain is well-controlled. Patient reports eating and drinking without any nausea or vomiting. Patient reports minimal bleeding. Patient has passed gas but no bowel movements. Patient is walking without lower extremity pain or shortness of breath. Patient reports desire for contraception through her outpatient provider and breast-feeding. (Kyle Lovett MD R2) Remarks Patient seen and evaluated with resident under direct supervision, agree with assessment and plan. (Esequiel Abrams MD) Objective Vitals/I&O Vital Signs Date Time Temp Pulse Resp B/P (MAP) Pulse Ox O2 Delivery O2 Flow Rate FiO2 09/30/17 15:38 100 09/30/17 15:38 98.4 98 22 123/78 (93) 09/30/17 15:20 16 09/30/17 15:00 104 123/82 (96) 09/30/17 14:50 16 09/30/17 14:45 109 117/85 (96) 09/30/17 14:30 104 123/81 (95) 09/30/17 14:20 16 99 09/30/17 14:15 110 120/78 (92) 09/30/17 14:06 118 114/72 (86) 09/30/17 14:00 115 114/76 (89) 09/30/17 13:50 98.4 16 09/30/17 13:45 112 09/30/17 13:40 118 09/30/17 13:35 117 09/30/17 13:30 112 09/30/17 13:30 131/93 (106) 09/30/17 13:25 129 09/30/17 13:20 132 09/30/17 13:15 115 09/30/17 13:15 126/80 (95) 09/30/17 13:10 108 09/30/17 13:05 112 09/30/17 13:00 102/61 (75) 09/30/17 13:00 109 09/30/17 12:55 116 09/30/17 12:50 119 09/30/17 12:50 113 09/30/17 12:45 119 09/30/17 12:45 115 116/85 (95) 09/30/17 12:45 110 09/30/17 12:40 117 09/30/17 12:40 114 09/30/17 12:38 108 16 114/74 (87) 09/30/17 12:35 115 09/30/17 12:30 115 09/30/17 12:26 115 114/77 (89) 09/30/17 12:25 117 09/30/17 11:50 109 09/30/17 11:40 108 09/30/17 11:35 112 09/30/17 11:30 106 09/30/17 10:25 18 09/30/17 10:20 117 09/30/17 10:15 60 126/75 (92) 09/30/17 10:05 112 09/30/17 10:00 111 09/30/17 09:55 108 09/30/17 08:50 111 09/30/17 08:45 105 Objective Remarks GENERAL: Well-nourished, well-developed patient. CARDIOVASCULAR: Regular rate and rhythm without murmurs, gallops, or rubs. RESPIRATORY: Breath sounds equal bilaterally. No accessory muscle use. ABDOMEN/GI: Abdomen soft, non-tender. Fundus: Firm, non-tender at umbilicus. GENITOURINARY: Light to moderate bleeding. EXTREMITIES: No cyanosis or edema, non-tender, without signs of DVT. Medications and IVs Current Medications Medications (Trade) Dose Ordered Sig/Irma Route Start Time Stop Time Status Last Admin Oxytocin 500 ml @ 0 mls/hr TITRATE PRN IV 09/30/17 12:15 09/30/17 12:26 (NS Flush) 2 ml BID IV FLUSH 09/30/17 21:00 (NS Flush) 2 ml UNSCH PRN IV FLUSH 09/30/17 14:15 (Tylenol) 650 mg Q4H PRN PO 09/30/17 14:15 (Motrin) 800 mg Q8H PRN PO 09/30/17 14:15 10/01/17 06:36 (Americaine 20% Top Spr) 1 spray Q4H PRN TOPICAL 09/30/17 14:15 09/30/17 15:14 (Tucks Pads) 1 applic QID PRN TOPICAL 09/30/17 14:15 (Mendy-Colace) 2 tab Q12H PRN PO 09/30/17 14:15 09/30/17 22:53 (Ambien) 5 mg HS PRN PO 09/30/17 21:00 (Mag-Al Plus Susp Liq) 15 ml Q8H PRN PO 09/30/17 14:15 (Zofran Odt) 4 mg Q6H PRN PO 09/30/17 14:15 (Percocet 5-325 Mg) 2 tab Q6H PRN PO 09/30/17 17:00 10/01/17 06:36 (Kyle Lovett MD R2) Assessment/Plan Problem List: (1) NVD (normal vaginal delivery) ICD Codes: O80 - Encounter for full-term uncomplicated delivery Status: Resolved Assessment and Plan Patient with h/o , PTL is a 27-year-old delivered at 37 weeks and 3 days. Patient is day 1 after NVD. Patient was counseled to do 6 weeks of pelvic rest. Patient was counseled to follow up in 6 weeks. Patient requested follow-up and contraception. --AF VSS --Continue routine care --Motrin and Percocet when necessary for pain --Encourage OOB --Pelvic rest for 6 weeks will need follow-up appointment at that time. --Contraception: IUD through outpatient provider --Anticipate discharge today or tomorrow w/d/w Dr. Abrams Discharge Planning Today or tomorrow (Kyle Lovett MD R2) Kyle Lovett MD R2 October 01, 2017 08:00 Esequiel Abrams MD October 01, 2017 09:31
[2017-10-01 08:30] VITALS: BP 116/73; PULSE 65; RESP 18; TEMP 98
--- NOTE | 2017-10-01 16:57 | HHI.DS ---
Admission Date September 30, 2017 at 08:49 Admitting Diagnosis Diagnosis: Delivery Date: September 30, 2017 Infant: Male Brief History 27-year-old black female 37-38 weeks PCS with complaints of contractions every 5-6 minutes since last evening. Patient had her cerclage cut out [address] [facility] she was told that time she was 4 cm dilated. Here on OB ED she is / station contractions are spaced out fairly far the patient has a history of just passive cervical dilation in the past. She had a in 2008 and 2 VBACs after that all babies were at 27-31 weeks Pt Condition on Discharge: Good Discharge Disposition: Discharge Home Discharge Instructions Diet Instructions: As Tolerated, No Restrictions Activities You Can Perform: Pelvic Rest Activities to Avoid: Sexual Activity Arnold Valdes II, MD October 01, 2017 16:57
--- NOTE | 2017-10-01 17:05 | HHI.DCPOC ---
Discharge Care Plan Diagnosis: (1) NVD (normal vaginal delivery) Report Symptoms to Your Doctor -Temperature above 100.5 degrees -Redness, of incision or excessive or foul smelling drainage -Unusual pain or calf pain -Increased vaginal bleeding -Painful or difficulty urinating -Feelings of extreme sadness or anxiety after 2 weeks Goals to Promote Your Health Stay hydrated. Directions to Meet Your Goals Take your medications as prescribed Follow your dietary instruction Follow activity as directed Ensure plenty of rest for recovery Drink fluids for hydration Keep your appointments as scheduled Take your immunizations and boosters as scheduled If your symptoms worsen call your PCP, if no PCP go to Urgent Care Center or Emergency Room Smoking is Dangerous to Your Health. Avoid second hand smoke Call the 24-hour crisis hotline for domestic abuse at Kyle Lovett MD R2 October 01, 2017 17:05
== END 2017-10-01 19:03 | disposition home or self-care (01) | DRG 775 ==
LOC: HOBED 08:04 → H2EA 08:49 → H1EA 15:25
PROVIDERS: ADMIT Obstetrics & Gynecology Maternal & Fetal Medicine; ATTEND Obstetrics & Gynecology Maternal & Fetal Medicine
PROC: 10E0XZZ Delivery of Products of Conception, External Approach (ICD-10-PCS; principal; 2017-09-30)
PROC: 0KQM0ZZ Repair Perineum Muscle, Open Approach (ICD-10-PCS; 2017-09-30)
DX: O34.33 Maternal care for cervical incompetence, third trimester (principal); O70.1 Second degree perineal laceration during delivery; O34.219 Maternal care for unspecified type scar from previous cesarean delivery; Z3A.37 37 weeks gestation of pregnancy; Z37.0 Single live birth
CPT/HCPCS: 80307; 81001; 90715; 99283; G0481; J2590